=== PATIENT | male | born 1955 | race Caucasian/White ===

== ENCOUNTER 2016-05-27 13:31 | Inpatient (IN) | payer OTHER ==
[2016-05-27] MEDS ORDERED: NS 0.9% 1000 ML* 1,000 ML IV ONE (14:03)
[2016-05-27 14:13] LABS: Hematocrit 44 % (42-52); Mean Corpuscular HGB Conc 32 g/dl (31-36); Mean Corpuscular Hemoglobin 32 pg (27-31); Mean Corpuscular Volume 99 fL (80-94); Red Blood Count 4.43 10^6/ul (4.0-5.4); Red Cell Distribution Width 13 % (10.5-15)
[2016-05-27 14:16] LABS: Add Diff/Slide Review? Slide Review Added; Comments Flag Yes
[2016-05-27 14:27] LABS: Albumin 5.1 g/dL (3.2-5.2); BUN/Creatinine Ratio 10.2 (8-20); C Reactive Protein 19.4 mg/L (< 5.00); Calcium 10.2 mg/dL (8.6-10.3); EGFR African American 21.5 (>60); EGFR Non-African American 16.7 (>60); Globulin 3.1 g/dL (2-4); Magnesium 2.3 mg/dL (1.9-2.7); Potassium 5.1 mmol/L (3.5-5.0); Total Bilirubin 0.5 mg/dL (0.2-1.0); Total Protein 8.2 g/dL (6.4-8.9)
[2016-05-27] MEDS ORDERED: Ondansetron INJ* 2 MG/ML VIAL IV ONE (14:27)
[2016-05-27] MEDS ORDERED: Morphine INJ* 4 MG/ML 1 ML CARPUJECT IV ONE (14:27)
[2016-05-27 14:31] LABS: Troponin I 0.13 ng/mL (<0.04)
[2016-05-27] MEDS ORDERED: Aspirin Low Dose CHEW TAB* 81 MG ONE (14:35)
[2016-05-27] MEDS ORDERED: Aspirin Low Dose CHEW TAB* 81 MG PO ONE (14:37)
--- NOTE | 2016-05-27 14:39 | RAD ---
Indication: Abdominal pain. Flat and decubitus views of the abdomen demonstrates no free air. Stool is noted in the right colon. IMPRESSION: Stool is noted in the right colon. No definite obstruction or free air is noted.
[2016-05-27 14:51] LABS: Immature Granulocytes 3 % (0-9); Mean Platelet Volume 8 um3 (7.4-10.4); Metamyelocytes % 1 % (0-2); Neutrophil % 85 % (38-83); RBC Morphology Normal (Normal); White Blood Count 21.8 10^3/ul (3.5-10.8)
--- NOTE | 2016-05-27 15:01 | RAD ---
HISTORY: Abdominal pain COMPARISONS: July 20, 2014 VIEWS: 2: Frontal dual-energy and lateral views of the chest. FINDINGS: CARDIOMEDIASTINAL SILHOUETTE: The cardiomediastinal silhouette is normal. JOSEP: The josep are normal. PLEURA: The costophrenic angles are sharp. No pleural abnormalities are noted. LUNG PARENCHYMA: The lungs are clear. ABDOMEN: The upper abdomen is clear. There is no subphrenic gas. BONES AND SOFT TISSUES: No bone or soft tissue abnormalities are noted. OTHER: None. IMPRESSION: NO ACTIVE CARDIOPULMONARY DISEASE.
[2016-05-27] MEDS ORDERED: Dextrose 50% Syringe 50 ML* 25 GM/50 ML SYRINGE IV PUSH PRN (15:21)
--- NOTE | 2016-05-27 16:52 | RAD ---
CLINICAL HISTORY: Abdominal pain, acute renal failure COMPARISON: July 20, 2014 TECHNIQUE: Multiple contiguous axial CT scans were obtained of the abdomen and pelvis, without intravenous contrast enhancement. Coronal and sagittal multiplanar reformations are submitted for review. Oral contrast was administered. FINDINGS: The study is limited by the lack of intravenous contrast. This limits evaluation of the solid organs and vasculature. LUNG BASES: The lung bases are clear. LIVER: The liver is diffusely low in attenuation compared to the spleen. There are no focal hepatic parenchymal masses. Liver is enlarged measuring 20 cm in long axis. BILE DUCTS: There is no intrahepatic or extrahepatic biliary dilatation. GALLBLADDER: The gallbladder is normal, without pericholecystic inflammatory change. PANCREAS: The pancreas is normal, without mass or ductal dilatation. SPLEEN: Normal in size and appearance. UPPER GI TRACT: Evaluation of the gastrointestinal tract is limited by incomplete gastric distention. The upper GI tract is unremarkable. SMALL BOWEL AND MESENTERY: The small bowel is normal in contour, course, and caliber. There is no obstruction or dilatation. COLON: There are multiple diverticula of the sigmoid colon. There is no pericolonic inflammatory change. ADRENALS: Normal bilaterally. KIDNEYS: The kidneys are normal in shape, size, contour, and axis. There is no hydronephrosis or nephrolithiasis. BLADDER: The bladder is collapsed around a Cortes catheter. PELVIC ORGANS: The prostate gland is normal. The seminal vesicles are symmetric. AORTA: There is calcific atherosclerotic disease of the abdominal aorta and its branches, without aneurysmal dilatation IVC: Unremarkable LYMPH NODES: There is no lymphadenopathy by size criteria. ABDOMINAL WALL: There is a fat-containing umbilical hernia. There is a fat-containing left inguinal hernia. BONES AND SOFT TISSUES: Degenerative changes are noted of the spine. There are bilateral pars defects at L5. OTHER: None IMPRESSION: 1. HEPATOMEGALY WITH FATTY INFILTRATION OF THE LIVER. 2. DIVERTICULOSIS. 3. FAT-CONTAINING UMBILICAL AND LEFT INGUINAL HERNIAS.
[2016-05-27] MEDS ORDERED: Magnesium CITRATE* 300 ML BTL PO ONE (17:00)
--- NOTE | 2016-05-27 17:22 | ED ---
Crystal Mckeon Anna, scribed for Edy Young MD on 05/27/16 at 1402 . HPI Chest Pain - HPI Summary HPI Summary: Patient is a 60 y/o male coming to [facility] presenting with gradual onset of constant CP that began 2 weeks ago. He describes the severity of the pain as 10/ 10. He additionally reports abd tightness and SOB. His Hx is significant for pancreatitis and DM. - History of Current Complaint Chief Complaint: EDChestPainROMI Time Seen by Provider: 05/27/16 13:57 Hx Obtained From: Patient Pain Intensity: 10 Pain Scale Used: 0-10 Numeric - Allergy/Home Medications Allergies/Adverse Reactions: Allergies Allergy/AdvReac Type Severity Reaction Status Date / Time No Known Allergies Allergy Verified 07/20/14 18:17 Home Medications: Home Medications Amitriptyline TAB* [Elavil TAB*] 75 mg PO BEDTIME 05/27/16 [History Confirmed ] Aspirin EC Low Dose* [Ecotrin EC Low Dose*] 81 mg PO DAILY 05/27/16 [History Confirmed 05/27/16] Atorvastatin* [Lipitor*] 20 mg PO DAILY 05/27/16 [History Confirmed 05/27/16] Cetirizine* [ZyrTEC*] 10 mg PO DAILY 05/27/16 [History Confirmed 05/27/16] Vlryhrcymqqkm-Xwkkwekunlh-Ihnh [Odefsey 200-25-25 mg] 1 tab PO DAILY 05/27/16 [ History Confirmed 05/27/16] Insulin GLARGINE(*) [Lantus(*)] 48 units SUBCUT BID 05/27/16 [History Confirmed 05/27/16] Insulin REGULAR(*) 0 - 100 units SUBCUT TID 05/27/16 [History Confirmed 05/27/16 ] Lisinopril [Lisinopril 40 MG-] 40 mg PO DAILY 05/27/16 [History Confirmed ] Meloxicam(NF) [Mobic(NF)] 7.5 mg PO BID 05/27/16 [History Confirmed 05/27/16] Omeprazole CAP* [Prilosec CAP* 20 MG] 20 mg PO DAILY 05/27/16 [History Confirmed 05/27/16] Polyethylene Glycol 3350* [Miralax*] 17 gm PO DAILY 05/27/16 [History Confirmed 05/27/16] Psyllium AROLDO* [Metamucil AROLDO*] 1 pkt PO DAILY 05/27/16 [History Confirmed ] Pyridoxine TAB* [Vitamin B6 TAB*] 100 mg PO BID 05/27/16 [History Confirmed 11/03] metFORMIN* [Glucophage*] 1,000 mg PO BID 05/27/16 [History Confirmed 05/27/16] PMH/Surg Hx/FS Hx/Imm Hx Previously Healthy: No - Pancreatitis in 2014 Endocrine/Hematology History: Reports: Hx Diabetes Cardiovascular History: Reports: Hx Hypertension, Other Cardiovascular Problems/ Disorders - dyslipidemia GI History: Reports: Hx Gastroesophageal Reflux Disease Infectious Disease History: Yes Infectious Disease History: Denies: Traveled Outside the [place] in Last 30 Days - Family History Known Family History: Negative: Cardiac Disease, Diabetes - Social History Occupation: Unemployed - Incarcerated Alcohol Use: None Substance Use Type: Reports: None Smoking Status (MU): Heavy Every Day Tobacco Smoker Review of Systems Positive: Chest Pain Positive: Shortness Of Breath Positive: Abdominal Pain All Other Systems Reviewed And Are Negative: Yes Physical Exam - Summary Physical Exam Summary: VITAL SIGNS: Reviewed. GENERAL: Patient is a well developed and nourished male with disconfort c/o CP, abdominal pain and SOB. HEAD AND FACE: Normocephalic and atraumatic. EYES: PERRLA, EOMI x 2, No injected conjunctiva. EARS: Hearing grossly intact. Ear canals and tympanic membranes are WNL. MOUTH: Oropharynx within normal limits. NECK: Supple, trachea is midline, no adenopathy, no JVD. CHEST: Symmetric, no tenderness at palpation LUNGS: Clear to auscultation bilaterally. No wheezing or crackles. CVS: RRR,, S1 and S2 present, no murmurs or gallops appreciated. ABDOMEN: Rigid, Positive abdominal distention, decrease BS, EXTREMITIES: FROM in all major joints, no edema, no cyanosis or clubbing. NEURO: Alert and oriented x 3. No acute neurological deficits. Speech is normal. SKIN: Dry and warm Triage Information Reviewed: Yes Vital Signs On Initial Exam: Initial Vitals Temp Pulse Resp BP Pulse Ox 85 F 109 20 127/65 100 05/27/16 13:44 05/27/16 13:44 05/27/16 13:44 05/27/16 13:44 05/27/16 13:44 Vital Signs Reviewed: Yes Diagnostics - Vital Signs Vital Signs Temp Pulse Resp BP Pulse Ox 05/27/16 13:44 85 F 109 20 127/65 100 - Laboratory Lab Results: Lab Results 05/27/16 Range/Units 13:35 WBC Pending RBC 4.43 (4.0-5.4) 10^6/ul Hgb 14.0 (14.0-18.0) g/dl Hct 44 (42-52) % MCV 99 H (80-94) fL MCH 32 H (27-31) pg MCHC 32 (31-36) g/dl RDW 13 (10.5-15) % Plt Count Pending MPV Pending Neut % (Auto) Pending Lymph % (Auto) Pending Jones % (Auto) Pending Eos % (Auto) Pending Baso % (Auto) Pending Absolute Neuts (auto) Pending Absolute Lymphs (auto) Pending Absolute Monos (auto) Pending Absolute Eos (auto) Pending Absolute Basos (auto) Pending Absolute Nucleated RBC Pending Nucleated RBC % Pending Result Diagrams: 05/27/16 13:35 05/27/16 13:35 Lab Statement: Any lab studies that have been ordered have been reviewed, and results considered in the medical decision making process. - Radiology Abd XR Xray Interpretation: Positive (See Comments) Radiology Interpretation Completed By: Radiologist - IMPRESSION: Stool is noted in the right colon. No definite obstruction or free air is noted. CXR Xray Interpretation: No Acute Changes Radiology Interpretation Completed By: Radiologist - CT CT abd/pel CT Interpretation: Positive (See Comments) CT Interpretation Completed By: Radiologist - IMPRESSION: 1. HEPATOMEGALY WITH FATTY INFILTRATION OF THE LIVER. 2. DIVERTICULOSIS. 3. FAT-CONTAINING UMBILICAL AND LEFT INGUINAL HERNIAS. - EKG 1342 Cardiac Rate: Tachycardia - 104 bpm EKG Rhythm: Sinus Tachycardia ST Segment: Normal Ectopy: None EKG Interpretation: no ST elevation 1431 Cardiac Rate: Tachycardia - 104 bpm EKG Rhythm: Sinus Tachycardia ST Segment: Normal Ectopy: None EKG Interpretation: no ST elevation; no change from initial EKG at 1342. Chest Pain Course/Dx - Course Assessment/Plan: Patient is a 60 y/o male coming to [facility] presenting with gradual onset of constant CP that began 2 weeks ago. He describes the severity of the pain as 10/10. He additionally reports abd tightness and SOB. Initially the patient was given IV fluids and morphine for the pain and aspirin since she has an increased troponin. The abdomen is distended and diffuse tenderness therefore I immediately order an EKG, blood work and abdominal and chest x rays to r/o STEMI, viscus perforation. Blood work shows an increase in WBCs 21.8, K+ 5.1 possible secondary to dehydration, increased BUN and creatinine with an acute renal failure, Glucose is 335, creatinine kinase of 781 consistent with rhabdomyolysis and increase troponin. He was also given IV fluid and I consulted Dr. Allen from cardiology who came and saw the patient. He reported that it is not an STEMI. I discussed the case with Dr. Preciado and he will consult after CT of the abdomen. EKG: NSR w/o IVY x 2. CXR impression ; No acute pathology. Abdominal X ray impression: Stool in the right colon. NO definite obstruction is noted. Abdominal and pelvic Ct impression: Hepatomegaly w/ fatty infiltration. Diverticulosis, fat containing umbilical and left inguinal hernias. After morphine patient is more comfortable and hemodynamically stable. I discuss my physical exam, findings and test results with Dr. Kemp from the hospitalist services and she agrees to admit patient to his services. Patient is hemodynamically stable alert and oriented x 3. - Chest Pain Differential Diagnosis/HQI/PQRI: Acute IA, ACS, Angina, CHF, Chest Wall, GI Disease, Lower Respiratory Infection, Pulmonary Edema - Diagnoses Provider Diagnoses: Chest pain r/o ACS, Troponin level elevated, Abdominal pain, Acute renal failure, Leukocytosis, Rhabdomyolysis - Provider Notifications Discussed Care Of Patient With: Dr. Allen (learning technologies specialist) at 1437. He came and saw the patient. He believes it is not a cardio isssue at this time. Dr. Preciado (surgeon) at 1449. He recommends we complete the CT and call back with the results. Dr. Kemp (hospitalist) at 1629. Accepts the patient for admission. Discharge - Discharge Plan Condition: Stable Disposition: ADMITTED TO [facility] The documentation as recorded by the Crystal spence Anna accurately reflects the service I personally performed and the decisions made by me, Edy Young MD.
[2016-05-27] MEDS: NS 0.9% 1000 ML* 1,000 ML IV SCH (17:27)
[2016-05-27] MEDS: cefTRIAXone VIAL(*) 1,000 MG in NS 0.9% 50 ML* 50 ML IVPB SCH (17:28)
[2016-05-27] MEDS: metroNIDAZOLE IV 500 MG/100ML* 500 MG/100 ML BAG IVPB SCH (17:51)
[2016-05-27 17:57] LABS: Urine Bacteria Absent (Absent); Urine Bilirubin Negative (Negative); Urine Glucose 3+(>=500 mg/dL) (Negative); Urine Nitrite Negative (Negative)
[2016-05-27] MEDS: Insulin GLARGINE(*) 1 UNITS UNIT SUBCUT SCH (18:01)
[2016-05-27] MEDS: Pantoprazole IV* 40 MG IV SCH (18:02)
--- NOTE | 2016-05-27 18:22 | HP ---
HISTORY AND PHYSICAL: DATE OF ADMISSION: 05/27/16 PRIMARY CARE PHYSICIAN: A physician from [facility] in [place]. CHIEF COMPLAINT: Generalized weakness, feeling faint, and abdominal pain. HISTORY OF PRESENT ILLNESS: Dakotah Bowen is a 60-year-old male with history of diabetes type 2, insulin dependent; HIV positive, currently treated; hepatitis C antibody positive, but negative viral loads, who was seen initially at the medical office at [facility] for "nearly passing out." The patient complained of problems with urination. 300 mL of urine was obtained after checking post-void at [place]. Subsequently, the patient was sent to the emergency department for evaluation. Here, he complained of diffuse pain. I am evaluating the patient after 4 mg of morphine that he received in the ED. Once again, he complains of increasing abdominal distention , diffuse abdominal pain. He has had no problems with p.o. intake. He stated he has not had bowel movement for "days." He has not had flatulence for also several days. The patient also has multiple other complaints, and he complains also of cough, but no shortness of breath. The cough has been nonproductive and going on for several days. He also complains of chest pain, but further more he explains that it is most likely due to the abdominal pain, is referred. He has chronic bilateral lower leg edema. The patient at this point appears to have small bowel obstruction. His lactic acid is elevated as well as troponin. He is going to be placed in the intensive care unit for further management. PAST MEDICAL HISTORY: 1. Hepatitis C antibody positive with viral load negative. 2. HIV positive. 3. Diabetes, type 2, on insulin. 4. Gastroesophageal reflux disease. 5. History of degenerative disk disease with chronic lower back pain. The patient is cane and wheelchair dependent. 6. History of smoking. MEDICATIONS: 1. Lantus insulin 48 units b.i.d. 2. Regular insulin sliding scale with each meal. 3. Aspirin 81 mg daily. 4. Lipitor 20 mg daily. 5. Metformin 1000 mg b.i.d. 6. Lisinopril 40 mg daily. 7. Elavil 75 mg q.h.s. 8. Prilosec 20 mg daily. 9. Odefsey 1 tablet daily. 10. Vitamin B6 100 mg b.i.d. 11. Zyrtec 10 mg daily. 12. Metamucil 1 tablespoon daily. 13. MiraLAX 17 g daily. 14. Mobic 7.5 mg b.i.d. ALLERGIES: No known drug allergies. FAMILY HISTORY: Positive for mother who secondary to unknown chest tumor. Father sick secondary to "diabetic coma." SOCIAL HISTORY: The patient smokes 1 pack per day. He denies any alcohol or drug use. He is currently a prisoner at [facility] and he has been at [place] [facility] for 8 months now. His legal guardian due to his imprisonment is [facility]. REVIEW OF SYSTEMS: Please see history of present illness. The patient states that he is basically wheelchair bound due to his chronic lower back pain. He states that he uses Mobic for the back pain only. He denies any use of other nonsteroidal antiinflammatory medications. He complains of urinary urgency and frequency. Once again, he had 300 mL of urine residual at [place]. Complains of no bowel movement and no flatulence for several days now. Increasing abdominal girth was noted, but no nausea or vomiting and his appetite was good. The patient complains of chest pain but he indicates epigastric pain when evaluated. He denies shortness of breath, but complains of nonproductive cough for several days. He denies fevers. All the remaining 14 systems were reviewed with the patient, were otherwise negative. PHYSICAL EXAMINATION GENERAL: The patient is a very pleasant 60-year-old male whose BMI is 34.2 kg/ sq. m. The patient is in no acute distress. Awake, alert, and oriented x3. VITAL SIGNS: Blood pressure 127/65, heart rate of 105 and regular, respiratory rate 20, oxygen saturation 92 % on room air. Please note that when the patient is falling asleep, his oxygen saturation drops to the 80s on room air. Temperature of 97.8. HEENT: Head: Atraumatic, normocephalic. Eyes: Pupils equal and reactive to light and accommodation. Oropharynx clear. Mucosa dry. NECK: Supple. No JVD. No bruit bilaterally. RESPIRATORY: Clear to auscultation bilaterally. CARDIOVASCULAR: Regular rate and rhythm. No murmur. ABDOMEN: Very protuberant and distended. Firm to palpation, diffusely tender. Bowel sounds are hypoactive. There is no rebound and no guarding. EXTREMITIES: There is trace bilateral pedal edema. +2 pulses bilaterally. No clubbing or cyanosis. NEURO: Speech clear. Cranial nerves II through XII are grossly intact. Muscle strength is 5/5 bilaterally. SKIN: On evaluation of the skin, no ecchymotic areas or rashes noted. DIAGNOSTIC STUDIES/LAB DATA: Showed white blood cell count of 21.8, hemoglobin of 14.0, hematocrit of 44, MCV of 99, and platelets of 376. The patient has 2% bands on the differential and 85% of neutrophils. Sodium was 138 , potassium of 5.1, chloride 98, carbon dioxide 35, BUN 38, creatinine of 3.72. Anion gap of 15. Glucose of 335. Lactic acid of 4.1. Liver function tests showed CPK of 781. Troponin of 0.1. C-reactive protein of 19. Brain natriuretic peptide was 40. Lipase of 113. AST, ALT, and alkaline phosphatase were unremarkable. Portable chest x-ray, impression: "No active cardiopulmonary disease." Abdominal x-ray, impression: "Stool noted in the right colon. No definite obstruction or free air is noted." The patient's EKG showed sinus tachycardia with heart rate of 104 beats per minute with no new ischemic changes noted. 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 ASSESSMENT AND PLAN: A 60-year-old male with HIV positive as well as diabetes, type 2, and obesity, and current smoker, who presents meeting systemic inflammatory response syndrome criteria with symptoms of small bowel obstruction. At this point, we are still awaiting the CT of abdomen as ordered by the ED. However, the patient's symptoms most likely related to small bowel obstruction. The patient is going to be placed on n.p.o., intravenous hydration, and Protonix IV for GI prophylaxis while n.p.o. Further management depends on the patient's CAT scan results. The patient's lactic acidosis is most likely due to combination of dehydration as well as use of metformin. We will check lactic acid in another 3 hours after intravenous fluid hydration. The patient's troponin is mildly elevated in the face of acute renal failure. We will continue trending troponins and place the patient in the ICU. I will also obtain transthoracic echocardiogram. For the time being, the patient's symptoms are not suggestive of angina. For the patient's diabetes, which is uncontrolled, the patient is going to be on insulin sliding scale and insulin Lantus twice a day. Intravenous fluids are going to be administered. For history of urinary frequency and urgency and questionable urinary retention , we will place Cortes for hemodynamic monitoring in the ED and obtain urinalysis. The patient meets systemic inflammatory response syndrome criteria at admission , with source most likely being intraabdominal or maybe urinary tract infection. At this point, the patient is going to be placed empirically on ceftriaxone and Flagyl. Code status is full. For DVT prophylaxis, the patient is going to be placed on heparin subcutaneously. In regards to the patient's HIV medications, I asked the guards from [place] to bring his HIV medications for tomorrow. TIME SPENT: Approximately 72 minutes was spent on admission of this patient, more than half the time was spent [id number] with the patient during the interview and physical exam. CC: [facility] * [id number]/CPS #: [id number] MTDD
[2016-05-27] MEDS: Insulin LISPRO* 1 UNITS UNIT SUBCUT SCH (19:09)
[2016-05-27] MEDS ORDERED: Nicotine Inhaler* 10 MG AMP INH PRN (19:23)
[2016-05-27] MEDS ORDERED: Mouth Piece, Nicotine* 1 EACH CARTRIDGE INH ONE (19:23)
[2016-05-27] MEDS ORDERED: Mouth Piece, Nicotine* 1 EACH CARTRIDGE ONE (19:54)
[2016-05-27] MEDS: Morphine INJ* 2 MG/ML 1 ML CARPUJECT IV PRN (20:00)
[2016-05-27] MEDS: LORazepam INJ* 2 MG/ML 1 ML VIAL IV PUSH PRN (20:00)
[2016-05-27] MEDS ORDERED: NS 0.9% 500 ML* 500 ML IV ONE (22:00)
[2016-05-27] MEDS ORDERED: Sodium Phosphate ADULT ENEMA* 118 ml bottle PR ONE (22:10)
[2016-05-27] MEDS: Heparin VIAL(*) 5000 UNITS/ML VIAL (FIVE THOUSAND) SUBCUT SCH (22:23)
[2016-05-27] MEDS ORDERED: LORazepam INJ* 2 MG/ML 1 ML VIAL ONE (22:36)
[2016-05-28] MEDS: Morphine INJ* 2 MG/ML 1 ML CARPUJECT IV PRN ×5 (00:37→20:14)
[2016-05-28] MEDS: Insulin LISPRO* 1 UNITS UNIT SUBCUT SCH ×4 (00:49→17:46)
[2016-05-28] MEDS: metroNIDAZOLE IV 500 MG/100ML* 500 MG/100 ML BAG IVPB SCH ×3 (02:06→17:34)
[2016-05-28] MEDS ORDERED: Sodium Phosphate ADULT ENEMA* 118 ml bottle PR ONE (03:46)
[2016-05-28] MEDS: Insulin GLARGINE(*) 1 UNITS UNIT SUBCUT SCH ×2 (04:18→15:36)
[2016-05-28] MEDS: Polyethylene Glycol 3350* 17 GM PACKET PO SCH ×2 (04:18→09:05)
[2016-05-28] MEDS: Heparin VIAL(*) 5000 UNITS/ML VIAL (FIVE THOUSAND) SUBCUT SCH ×2 (05:29→15:36)
[2016-05-28 06:08] LABS: Hematocrit 36 % (42-52); Hemoglobin 12.1 g/dl (14.0-18.0); Mean Corpuscular HGB Conc 33 g/dl (31-36); Mean Corpuscular Hemoglobin 32 pg (27-31); Mean Corpuscular Volume 97 fL (80-94); Mean Platelet Volume 7 um3 (7.4-10.4); Red Blood Count 3.73 10^6/ul (4.0-5.4); Red Cell Distribution Width 13 % (10.5-15); White Blood Count 14.3 10^3/ul (3.5-10.8)
[2016-05-28 06:09] LABS: Comments Flag Yes
[2016-05-28 06:28] LABS: BUN/Creatinine Ratio 23.4 (8-20); Calcium 8.7 mg/dL (8.6-10.3); EGFR African American 47.3 (>60); EGFR Non-African American 36.8 (>60); Globulin 2.7 g/dL (2-4); Potassium 3.7 mmol/L (3.5-5.0); Total Bilirubin 0.4 mg/dL (0.2-1.0); Total Protein 6.7 g/dL (6.4-8.9)
[2016-05-28] MEDS: Pantoprazole IV* 40 MG IV SCH (08:50)
[2016-05-28] MEDS: LORazepam INJ* 2 MG/ML 1 ML VIAL IV PUSH PRN ×2 (08:50→20:13)
[2016-05-28] MEDS ORDERED: Polyethylene Glycol 3350* 17 GM PACKET PO SCH (09:00)
[2016-05-28] MEDS: Psyllium PAK PO SCH (12:44)
--- NOTE | 2016-05-28 16:24 | ECHO ---
Patient: IBRAHIMA GONZALEZ [id number] [facility] Rec#: [id number] : 1955 Date: 05/28/2016 Age: 60y Height: 180 cm / 70.9 in Weight: 111 kg / 244.6 lbs Sex: M BSA: 2.29 Room#: 402 Admit Date#: 05/27/2016 Type: Inpatient Referring: Daniela Kemp MD Reading: Ya Ashley MD Particle Board Supervisor: Jesus Diego RDCS Transthoracic Echocardiogram Indication: ELEVATED,TROPONIN,HIV BP: 136/86 HR: 97 Rhythm: NSR Findings History: HEPC,HIV,DM,GERD,fomer smoker Technical Comments: The study quality is fair. Left Ventricle: The left ventricular chamber size is normal. There is normal left ventricular systolic function. The estimated ejection fraction is 55-60%. Abnormal left ventricular diastolic filling is observed, consistent with impaired relaxation. Left Atrium: The left atrial chamber size is normal. Right Ventricle: The right ventricular cavity size is normal. The right ventricular global systolic function is normal. Right Atrium: The right atrial cavity size is normal. Aortic Valve: The aortic valve is trileaflet. There is no evidence of aortic regurgitation. There is no evidence of aortic stenosis. Mitral Valve: The mitral valve leaflets appear normal. There is a trace of mitral regurgitation. There is no evidence of mitral stenosis. Tricuspid Valve: There is trace tricuspid regurgitation. Pulmonic Valve: The pulmonic valve appears normal. There is no evidence of pulmonic regurgitation. There is no pulmonic stenosis. Pericardium: There is no pericardial effusion. Aorta: There is no dilatation of the ascending aorta. There is no dilatation of the aortic arch. There is no dilation of the aortic root. Pulmonary Artery: The main pulmonary artery is not well visualized. Venous: The venous system is not well visualized. Summary: There was not any prior study for comparison. Conclusions There is normal left ventricular systolic function. The estimated ejection fraction is 55-60%. Abnormal left ventricular diastolic filling is observed, consistent with impaired relaxation. There is a trace of mitral regurgitation. Measurements Name Value Normal Range RVIDd (AP) 2D 2.6 cm (0.9 - 2.6) RVDdMajor (2D) 2.7 cm (2.2 - 4.4) RAd ISD 4CH 4.3 cm (3.4 - 4.9) RA (A4C)W 2.5 cm (2.9 - 4.6) IVSd (2D) 0.7 cm (0.6 - 1) LVPWd (2D) 0.8 cm (0.6 - 1) LVIDd (2D) 5.6 cm (3.6 - 5.4) LVIDs (2D) 3.5 cm - LV FS (2D) 38 % (25 - 45) Aortic Annulus 2.4 cm (1.4 - 2.6) Ao root diameter (2D) 2.4 cm (2.1 - 3.5) Ascending Ao 3.3 cm (2.1 - 3.4) Aortic arch 2.3 cm (1.8 - 3.4) LA dimension (AP) 2D 4 cm (2.3 - 3.8) LAd ISD 4CH 4.4 cm (2.9 - 5.3) LA ISD 4CH W 3.2 cm (2.5 - 4.5) Name Value Normal Range LA ESV SP 4CH (A/L) 38 ml - LA ESV SP 2CH (A/L) 58 ml - LA ESV BP (A/L) 52 ml - LA ESV BP (A/L) index 22.85 ml/m2 - LA ESV SP 4CH (MOD) 34 ml - LA ESV SP 2CH (MOD) 63 ml - Name Value Normal Range MV E-wave Vmax 0.73 m/sec - MV deceleration time 119 msec - MV A-wave Vmax 0.7 m/sec - MV E:A ratio 1.01 ratio - LV septal e' Vmax 0.07 m/sec - LV lateral e' Vmax 0.07 m/sec - LV E:e' septal ratio 10.4 ratio - LV E:e' lateral ratio 10.4 ratio - Name Value Normal Range LVOT diameter 2 cm - LVOT Vmax 1 m/sec - Name Value Normal Range PV Vmax 1.02 m/sec - PV peak gradient 4.15 mmHg -
--- NOTE | 2016-05-28 16:38 | PN ---
Subjective Date of Service: 05/28/16 Interval History: Seen and examined Has many complaints "pain all over" does endorse pain in lower back as well as leg weakness. Notes he has had "spurting" of stool which he cannot control. Has episodes of urinary incontinence. Question of urinary retention based on admission H&P. Feels very distended. No Flatus. He is hungry. No nausea nor vomiting Objective Active Medications: Dextrose (D50w Syringe 50 Ml*) 12.5 gm IV PUSH .FOR FS < 60 - SS PRN PRN Reason: FS < 60 Heparin Sodium (Porcine) (Heparin Vial(*)) 5,000 units SUBCUT Q8HR [facility] Last Admin: 05/28/16 15:36 Dose: 5,000 units Sodium Chloride (Ns 0.9% 1000 Ml*) 1,000 mls @ 125 mls/hr IV PER RATE [facility] Last Admin: 05/27/16 17:27 Dose: 125 mls/hr Ceftriaxone Sodium 1,000 mg/ (Sodium Chloride) 50 mls @ 200 mls/hr IVPB Q24H [facility] Last Admin: 05/27/16 17:28 Dose: 200 mls/hr Metronidazole/Sodium Chloride (Flagyl 500 Mg Ivpb*) 500 mg in 100 mls @ 100 mls /hr IVPB Q8H [facility] Last Admin: 05/28/16 08:51 Dose: 100 mls/hr Insulin Glargine (Lantus(*)) 30 units SUBCUT Q12H [facility] Last Admin: 05/28/16 15:36 Dose: 30 unit Insulin Human Lispro (Humalog*) 0 units SUBCUT Q6HR [facility] PRN Reason: Protocol Last Admin: 05/28/16 12:19 Dose: Not Given Lorazepam (Ativan Inj*) 1 mg IV PUSH Q6H PRN PRN Reason: ANXIETY Last Admin: 05/28/16 08:50 Dose: 1 mg Magnesium Citrate (Citrate Of Magnesia*) 150 ml PO ONCE ONE Stop: 05/28/16 17:01 Morphine Sulfate (Morphine Inj (Syringe)*) 1 mg IV Q4H PRN PRN Reason: PAIN Last Admin: 05/28/16 15:37 Dose: 1 mg Nicotine (Nicotine Inhaler*) 10 mg INH Q2H PRN PRN Reason: CRAVING Last Admin: 05/27/16 19:59 Dose: 10 mg Pantoprazole Sodium (Protonix Iv*) 40 mg IV DAILY [facility] Last Admin: 05/28/16 08:50 Dose: 40 mg Polyethylene Glycol/Electrolytes (Miralax*) 17 gm PO DAILY [facility] Last Admin: 05/28/16 08:50 Dose: 17 gm Polyethylene Glycol/Electrolytes (Miralax*) 17 gm PO 0800,2100 [facility] Last Admin: 05/28/16 09:05 Dose: 17 gm Psyllium Hydrophilic Mucilloid (Metamucil Bryan*) 1 pkt PO DAILY [facility] Last Admin: 05/28/16 12:44 Dose: 1 pkt Senna (Senokot Tab*) 2 tab PO BEDTIME PRN PRN Reason: CONSTIPATION Vital Signs 05/27/16 05/27/16 05/27/16 17:00 17:10 17:19 Temperature 98.1 F 97.3 F 208.8 F Pulse Rate 107 110 47 Respiratory 12 13 20 Rate Blood Pressure 159/89 159/89 (mmHg) O2 Sat by Pulse 88 93 96 Oximetry 05/27/16 05/27/16 05/27/16 17:30 17:44 17:45 Temperature 97.8 F 98.2 F Pulse Rate 111 113 Respiratory 15 22 25 Rate Blood Pressure 107/95 130/76 (mmHg) O2 Sat by Pulse 90 89 Oximetry 05/27/16 05/27/16 05/27/16 18:00 18:05 18:14 Temperature 98.4 F 98.5 F 98.5 F Pulse Rate 109 111 Respiratory 23 17 Rate Blood Pressure 149/83 (mmHg) O2 Sat by Pulse 91 89 Oximetry 05/27/16 05/27/16 05/27/16 19:00 20:00 21:00 Temperature 98.9 F 97.5 F 98.9 F Pulse Rate Respiratory 23 18 27 Rate Blood Pressure 137/71 170/96 (mmHg) O2 Sat by Pulse 91 92 96 Oximetry 05/27/16 05/27/16 05/27/16 21:02 22:00 22:41 Temperature 98.9 F 98.4 F Pulse Rate Respiratory 20 25 16 Rate Blood Pressure 111/77 150/92 (mmHg) O2 Sat by Pulse 94 98 Oximetry 05/27/16 05/28/16 05/28/16 23:06 00:37 04:00 Temperature 97.2 F Pulse Rate 101 Respiratory 18 19 16 Rate Blood Pressure 163/90 (mmHg) O2 Sat by Pulse 96 Oximetry 05/28/16 05/28/16 05/28/16 04:24 04:55 05:28 Temperature 97.5 F Pulse Rate 94 Respiratory 19 18 18 Rate Blood Pressure 136/86 (mmHg) O2 Sat by Pulse 99 Oximetry 05/28/16 05/28/16 05/28/16 06:28 07:24 08:00 Temperature 98.1 F Pulse Rate 101 Respiratory 18 20 Rate Blood Pressure 141/85 (mmHg) O2 Sat by Pulse 92 Oximetry 05/28/16 05/28/16 05/28/16 08:50 09:50 10:51 Temperature Pulse Rate Respiratory 20 20 20 Rate Blood Pressure (mmHg) O2 Sat by Pulse Oximetry 05/28/16 05/28/16 11:51 15:37 Temperature Pulse Rate Respiratory 20 18 Rate Blood Pressure (mmHg) O2 Sat by Pulse Oximetry Oxygen Devices in Use Now: None Appearance: interactive, NAD Eyes: No Scleral Icterus, PERRLA Ears/Nose/Mouth/Throat: - - dry MM Neck: NL Appearance and Movements; NL JVP, Trachea Midline Respiratory: Symmetrical Chest Expansion and Respiratory Effort, Clear to Auscultation Cardiovascular: NL Sounds; No Murmurs; No JVD, RRR Abdominal: - - distened, TTP only in RLQ, no rebound or guarding, decreased bowel sounds Lymphatic: No Cervical Adenopathy Extremities: - - trace LE edema Neurological: Alert and Oriented x 3, - - at best 3/5 LE strength prox and distal, sensation intact, negative straight leg test Result Diagrams: 05/28/16 05:18 05/28/16 05:18 Additional Lab and Data: Lab Results 05/27/16 Range/Units 13:35 WBC Pending RBC 4.43 (4.0-5.4) 10^6/ul Hgb 14.0 (14.0-18.0) g/dl Hct 44 (42-52) % MCV 99 H (80-94) fL MCH 32 H (27-31) pg MCHC 32 (31-36) g/dl RDW 13 (10.5-15) % Plt Count Pending MPV Pending Neut % (Auto) Pending Lymph % (Auto) Pending [place] % (Auto) Pending Eos % (Auto) Pending Baso % (Auto) Pending Absolute Neuts (auto) Pending Absolute Lymphs (auto) Pending Absolute Monos (auto) Pending Absolute Eos (auto) Pending Absolute Basos (auto) Pending Absolute Nucleated RBC Pending Nucleated RBC % Pending Microbiology and Other Data: Microbiology 05/27/16 18:50 Nasal Screen MRSA (PCR)([facility]) - Final Nasal Mrsa Negative Assess/Plan/Problems-Billing Assessment: 60 yo M h/o HIV (unknown VL or CD4), DM2, GERD, chronic back pain p/w abdominal pain and obstipation - Patient Problems (1) Obstipation Comment: Unclear etiology. Reviewed film with Dr. Romano. No e/o fecal impaction , no SOB. Stomach is large maybe suggestion partial gastric outlet obstruction however pt with no nausea/vomiting. In setting of back pain with fecal and urinary incontinence will check MRI spine. In setting of elevated WBC would liek to check with contrast. Will hold until tomorrow and check with contrast if able otherwise MRI without contrast. (2) Diabetes Comment: Basal bolus insulin (3) HIV (human immunodeficiency virus infection) Comment: We do not have his antiretrovirals. Consult for assistance in selecting appropriate replacement. Check VL and CD4 count (4) Elevated troponin Comment: TTE read pending (5) Acute kidney failure Comment: Improving c/w NS (6) DVT prophylaxis Comment: HSQ
[2016-05-28] MEDS: cefTRIAXone VIAL(*) 1,000 MG in NS 0.9% 50 ML* 50 ML IVPB SCH (16:58)
[2016-05-28] MEDS ORDERED: Magnesium CITRATE* 300 ML BTL PO ONE (17:00)
[2016-05-28] MEDS: Senna TAB PO PRN (20:17)
[2016-05-29] MEDS: Heparin VIAL(*) 5000 UNITS/ML VIAL (FIVE THOUSAND) SUBCUT SCH ×4 (00:36→20:52)
[2016-05-29] MEDS: Ondansetron INJ* 2 MG/ML VIAL IV PRN ×3 (00:43→18:26)
[2016-05-29] MEDS: Insulin LISPRO* 1 UNITS UNIT SUBCUT SCH ×4 (02:21→18:20)
[2016-05-29] MEDS: metroNIDAZOLE IV 500 MG/100ML* 500 MG/100 ML BAG IVPB SCH ×3 (02:48→19:30)
[2016-05-29] MEDS: Morphine INJ* 2 MG/ML 1 ML CARPUJECT IV PRN ×5 (04:02→18:28)
[2016-05-29] MEDS: LORazepam INJ* 2 MG/ML 1 ML VIAL IV PUSH PRN ×2 (04:03→19:54)
[2016-05-29] MEDS: Insulin GLARGINE(*) 1 UNITS UNIT SUBCUT SCH ×2 (05:09→21:09)
[2016-05-29 07:13] LABS: Hematocrit 35 % (42-52); Hemoglobin 11.8 g/dl (14.0-18.0); Mean Corpuscular HGB Conc 34 g/dl (31-36); Mean Corpuscular Hemoglobin 32 pg (27-31); Mean Corpuscular Volume 97 fL (80-94); Mean Platelet Volume 7 um3 (7.4-10.4); Red Blood Count 3.64 10^6/ul (4.0-5.4); Red Cell Distribution Width 13 % (10.5-15); White Blood Count 9.2 10^3/ul (3.5-10.8)
[2016-05-29 07:22] LABS: Albumin 3.6 g/dL (3.2-5.2); BUN/Creatinine Ratio 22.9 (8-20); Calcium 8.7 mg/dL (8.6-10.3); Direct Bilirubin 0.1 mg/dL (0.03-0.18); EGFR African American 121.5 (>60); EGFR Non-African American 94.5 (>60); Globulin 2.7 g/dL (2-4); Indirect Bilirubin 0.6 mg/dL (0.3-1.0); Potassium 3.8 mmol/L (3.5-5.0); Total Bilirubin 0.7 mg/dL (0.2-1.0); Total Protein 6.3 g/dL (6.4-8.9)
[2016-05-29] MEDS: Pantoprazole IV* 40 MG IV SCH (09:11)
[2016-05-29] MEDS: Psyllium PAK PO SCH (09:11)
[2016-05-29] MEDS: NS 0.9% 1000 ML* 1,000 ML IV SCH (10:00)
[2016-05-29] MEDS ORDERED: Gadoteridol* (CONTRAST) 279.3 MG/ML 10 ML IV NR (10:41)
--- NOTE | 2016-05-29 12:27 | RAD ---
INDICATION: Low back pain and incontinence COMPARISON: CT abdomen pelvis dated July 20, 2014 at demonstrated advanced degenerative changes of the lumbar spine as well as at L5/S1 pars interarticularis defect. TECHNIQUE: Coronal sexual assault counsellor, sagittal T1, inversion recovery, T2, and axial T1, T2 images were acquired. Due to patient discomfort on the MRI scanner the contrast enhanced images were not acquired. FINDINGS: The spinal cord terminates at the T12/L1 level. There are no intrinsic abnormalities of the visualized cord. The lower thoracic and lumbar vertebrae are normally aligned. There is chronic appearing reduction of height involving the L4 and L5 vertebral bodies. Signal intensity of the vertebral bodies is appropriate. There is noticeable reduction in height in the lower lumbar intervertebral disc level with protrusion of the intervertebral discs seen both anterior and posteriorly. Bright fluid signal is seen at L3/L4 and L5/S1. The adjacent vertebral bodies do not exhibit similar fluid signal. Axial view images: Less otherwise specified below there is no significant central canal stenosis or neural foraminal stenosis. L3-L4: Broad-based disc protrusion combines with facet arthropathy and thickening of the ligamentum flavum to cause very mild central canal stenosis and mild to moderate bilateral neural foraminal stenosis. L4-L5: Broad-based disc protrusion combines with facet arthropathy and thickening of the ligamentum flavum to cause moderate bilateral neural foraminal stenosis. L5-S1: Broad-based disc protrusion combines with facet arthropathy, thickening of ligamentum flavum and proliferation of pericecal fat to cause central canal stenosis and moderate right and severe left neural foraminal stenosis. Best depicted on the axial view images is fatty replacement of the inferior portion of the erector spinae muscle (image 21 of 26). IMPRESSION: 1. There are multilevel degenerative changes of the lower lumbar spine as described above with the most severe findings at L5/S1 where there is high-grade central canal stenosis and advanced left greater than right neural foraminal stenosis. 2. Depicted best on the sagittal view images there is fluid signal at L3/L4 and L5/S1 where the intervertebral discs are otherwise desiccated indicating local effusion. This could be seen in the presence of osteomyelitis although the normal bony signal of the adjacent lumbar endplates does not support this. Please correlate to clinical signs or symptoms of intervertebral disc height is. 3. Fatty degeneration of the inferior portion of the left erector spinae muscle.
--- NOTE | 2016-05-29 17:32 | PN ---
Subjective Date of Service: 05/29/16 Interval History: Seen and examined. Notes pain in abdomen Had 4 bowel movements today. +flatus. Endorses weakness in b/l legs and pain when trying to flex them. Denies paresthesias in extremities No additional bowel incontinence but notes urinary incontinence but no retention. Objective Active Medications: Dextrose (D50w Syringe 50 Ml*) 12.5 gm IV PUSH .FOR FS < 60 - SS PRN PRN Reason: FS < 60 Gadoteridol (Prohance* (Contrast)) 20 ml IV ONCE NR Stop: 05/31/16 10:40 Heparin Sodium (Porcine) (Heparin Vial(*)) 5,000 units SUBCUT Q8HR [facility] Last Admin: 05/29/16 15:40 Dose: 5,000 units Sodium Chloride (Ns 0.9% 1000 Ml*) 1,000 mls @ 125 mls/hr IV PER RATE [facility] Last Admin: 05/29/16 10:00 Dose: 125 mls/hr Ceftriaxone Sodium 1,000 mg/ (Sodium Chloride) 50 mls @ 200 mls/hr IVPB Q24H [facility] Last Admin: 05/28/16 16:58 Dose: 200 mls/hr Metronidazole/Sodium Chloride (Flagyl 500 Mg Ivpb*) 500 mg in 100 mls @ 100 mls /hr IVPB Q8H [facility] Last Admin: 05/29/16 09:11 Dose: 100 mls/hr Insulin Glargine (Lantus(*)) 30 units SUBCUT Q24H [facility] Insulin Glargine (Lantus(*)) 15 units SUBCUT Q24H [facility] Insulin Human Lispro (Humalog*) 0 units SUBCUT Q6HR [facility] PRN Reason: Protocol Last Admin: 05/29/16 12:15 Dose: Not Given Lorazepam (Ativan Inj*) 1 mg IV PUSH Q6H PRN PRN Reason: ANXIETY Last Admin: 05/29/16 04:03 Dose: 1 mg Morphine Sulfate (Morphine Inj (Syringe)*) 2 mg IV Q3H PRN PRN Reason: PAIN Last Admin: 05/29/16 15:33 Dose: 2 mg Nicotine (Nicotine Inhaler*) 10 mg INH Q2H PRN PRN Reason: CRAVING Last Admin: 05/27/16 19:59 Dose: 10 mg Non-Formulary Medication (Lisinopril [Lisinopril 40 Mg-]) 40 mg PO DAILY [facility] Ondansetron HCl (Zofran Inj*) 4 mg IV Q6H PRN PRN Reason: NAUSEA Last Admin: 05/29/16 12:41 Dose: 4 mg Pantoprazole Sodium (Protonix Iv*) 40 mg IV DAILY [facility] Last Admin: 05/29/16 09:11 Dose: 40 mg Psyllium Hydrophilic Mucilloid (Metamucil Bryan*) 1 pkt PO DAILY [facility] Last Admin: 05/29/16 09:11 Dose: 1 pkt Senna (Senokot Tab*) 2 tab PO BEDTIME PRN PRN Reason: CONSTIPATION Last Admin: 05/28/16 20:17 Dose: 2 tab Vital Signs 05/28/16 05/28/16 05/28/16 19:42 20:13 20:14 Temperature 98.6 F Pulse Rate 97 Respiratory 17 20 20 Rate Blood Pressure 174/61 (mmHg) O2 Sat by Pulse 94 Oximetry 05/28/16 05/28/16 05/28/16 20:15 21:13 21:14 Temperature Pulse Rate Respiratory 20 20 20 Rate Blood Pressure (mmHg) O2 Sat by Pulse Oximetry 05/28/16 05/29/16 05/29/16 23:48 04:02 04:03 Temperature 97.5 F Pulse Rate 98 Respiratory 16 20 20 Rate Blood Pressure 154/68 (mmHg) O2 Sat by Pulse 94 Oximetry 05/29/16 05/29/16 05/29/16 05:02 05:03 07:55 Temperature 98.2 F Pulse Rate 106 Respiratory 20 20 16 Rate Blood Pressure 173/83 (mmHg) O2 Sat by Pulse 96 Oximetry 05/29/16 05/29/16 05/29/16 08:00 09:11 10:02 Temperature Pulse Rate 98 Respiratory 18 18 Rate Blood Pressure 164/72 (mmHg) O2 Sat by Pulse Oximetry 05/29/16 05/29/16 05/29/16 10:11 12:40 13:40 Temperature Pulse Rate Respiratory 18 18 20 Rate Blood Pressure (mmHg) O2 Sat by Pulse Oximetry 05/29/16 15:33 Temperature Pulse Rate Respiratory 20 Rate Blood Pressure (mmHg) O2 Sat by Pulse Oximetry Oxygen Devices in Use Now: None Appearance: lying flat on back, NAD Eyes: No Scleral Icterus, PERRLA Ears/Nose/Mouth/Throat: Clear Oropharnyx, Mucous Membranes Moist Neck: NL Appearance and Movements; NL JVP, Trachea Midline Respiratory: Symmetrical Chest Expansion and Respiratory Effort, Clear to Auscultation Cardiovascular: RRR Abdominal: - - softer than yesterday, distended, mild TTP, decreased BS Lymphatic: No Cervical Adenopathy Extremities: No Edema Skin: No Rash or Ulcers Neurological: Alert and Oriented x 3, - - 3/5 LE strength proximal muscle group , moderate rectal tone, sensation intact Result Diagrams: 05/29/16 06:22 05/29/16 06:22 Additional Lab and Data: Lab Results 05/27/16 Range/Units 13:35 WBC Pending RBC 4.43 (4.0-5.4) 10^6/ul Hgb 14.0 (14.0-18.0) g/dl Hct 44 (42-52) % MCV 99 H (80-94) fL MCH 32 H (27-31) pg MCHC 32 (31-36) g/dl RDW 13 (10.5-15) % Plt Count Pending MPV Pending Neut % (Auto) Pending Lymph % (Auto) Pending [place] % (Auto) Pending Eos % (Auto) Pending Baso % (Auto) Pending Absolute Neuts (auto) Pending Absolute Lymphs (auto) Pending Absolute Monos (auto) Pending Absolute Eos (auto) Pending Absolute Basos (auto) Pending Absolute Nucleated RBC Pending Nucleated RBC % Pending Microbiology and Other Data: Microbiology 05/27/16 18:50 Nasal Screen MRSA (PCR)([facility]) - Final Nasal [facility]sa Negative Assess/Plan/Problems-Billing Assessment: 60 yo M h/o HIV (unknown VL or CD4), DM2, GERD, chronic back pain p/w abdominal pain and obstipation found with local effusion around lumbar spine on MRI - Patient Problems (1) Sepsis Comment: Severe, present on admission with spinal source as most likely (2) Obstipation Comment: Unclear etiology. Reviewed film with Dr. Romano. No e/o fecal impaction. Stomach is large maybe suggestion partial gastric outlet obstruction however pt with no nausea/vomiting. High grade central canal stenosis on MRI spine as well as local effusion c/f osteo or abscess. c/w abx Neurosurgery consultation ID consultation (3) Diabetes Comment: hypoglycemic on AM labs decrease 30BId to 30 in AM and 15U in PM Basal bolus insulin (4) HIV (human immunodeficiency virus infection) Comment: Check VL and CD4 count Hold ART in setting of obstipation (5) Elevated troponin Comment: suspect demand (6) Acute kidney failure Comment: Improving c/w NS (7) DVT prophylaxis Comment: HSQ
[2016-05-29] MEDS: cefTRIAXone VIAL(*) 1,000 MG in NS 0.9% 50 ML* 50 ML IVPB SCH (18:25)
[2016-05-29] MEDS: Senna TAB PO PRN (19:54)
[2016-05-30] MEDS: Morphine INJ* 2 MG/ML 1 ML CARPUJECT IV PRN ×5 (00:23→20:58)
[2016-05-30] MEDS: NS 0.9% 1000 ML* 1,000 ML IV SCH ×4 (00:24→23:45)
[2016-05-30] MEDS: Insulin LISPRO* 1 UNITS UNIT SUBCUT SCH ×5 (00:28→21:11)
[2016-05-30] MEDS: metroNIDAZOLE IV 500 MG/100ML* 500 MG/100 ML BAG IVPB SCH ×2 (01:31→09:30)
[2016-05-30] MEDS: Heparin VIAL(*) 5000 UNITS/ML VIAL (FIVE THOUSAND) SUBCUT SCH ×2 (06:10→14:24)
[2016-05-30 06:11] LABS: Hematocrit 37 % (42-52); Mean Corpuscular HGB Conc 33 g/dl (31-36); Mean Corpuscular Hemoglobin 32 pg (27-31); Mean Corpuscular Volume 98 fL (80-94); Mean Platelet Volume 7 um3 (7.4-10.4); Red Blood Count 3.73 10^6/ul (4.0-5.4); Red Cell Distribution Width 12 % (10.5-15); White Blood Count 8.6 10^3/ul (3.5-10.8)
[2016-05-30] MEDS: Insulin GLARGINE(*) 1 UNITS UNIT SUBCUT SCH ×2 (06:11→21:10)
[2016-05-30 06:28] LABS: BUN/Creatinine Ratio 17.7 (8-20); Calcium 8.8 mg/dL (8.6-10.3); EGFR African American 128.7 (>60); Potassium 4.5 mmol/L (3.5-5.0)
[2016-05-30] MEDS: Lisinopril TAB* 10 MG PO SCH (09:32)
[2016-05-30] MEDS: Psyllium PAK PO SCH (09:33)
[2016-05-30] MEDS: Pantoprazole IV* 40 MG IV SCH (09:33)
[2016-05-30] MEDS ORDERED: Gadoteridol* (CONTRAST) 279.3 MG/ML 10 ML IV NR (11:04)
--- NOTE | 2016-05-30 11:45 | RAD ---
Indication: Urinary and fecal incontinence. Back pain. Noncontrast MRI of one day prior with note of fluid signal at the L3-L4 and L5-S1 intravertebral discs without associated osseous change to confirm presence of osteomyelitis discitis. History of HIV. Comparison: May 29, 2016 noncontrast MRI. July 20, [address] demonstrating postsurgical change of L3-L4 and L4-L5 LEFT laminectomy. Technique: [employer] 1.5 Mag [id number] with GEM suite. 20 mL ProHance IV contrast administered. Postcontrast sagittal and axial series of the lumbar sacral spine obtained. Report: There is osseous enhancement from the inferior endplate of L3 through the superior endplate of S1 as well as significant anterior and posterior epidural enhancement most confluent at the L4, L5, and S1 levels. The constellation of findings in the correct clinical setting is most consistent with multilevel osteomyelitis and epidural phlegmon. At the LEFT posterior lateral L5-S1 and S1 level there is a loculated epidural fluid collection measuring up to 0.9 cm AP by 1.8 cm transverse by 2.1 cm cephalocaudal consistent with epidural abscess. Anterior and lateral paravertebral inflammatory change with enhancement in the same distribution. Less specific enhancement of the partially atrophied LEFT posterior paraspinal musculature noted. No pathologic fracture evident. Negative for enhancement in the distribution of the well-circumscribed T2 hyperintensity at the L5-S1 disc on the exam of one day prior. This may represent hematoma or seroma related to severe disc degeneration or previous partial discectomy however abscess collection at the disc space is not excluded given the full spectrum of surrounding inflammatory findings. IMPRESSION: 1. In the correct clinical setting the constellation of findings is consistent with multilevel lumbar sacral spine osteomyelitis and epidural phlegmon with resulting severe acquired central canal stenosis most marked at the L5-S1 level. At the LEFT posterior lateral L5-S1 and S1 level there is a loculated epidural fluid collection measuring up to 0.9 cm AP by 1.8 cm transverse by 2.1 cm cephalocaudal consistent with epidural abscess. 2. Negative for enhancement in the distribution of the well-circumscribed T2 hyperintensity at the L5-S1 disc on the exam of one day prior. This may represent hematoma or seroma related to severe disc degeneration or previous partial discectomy however abscess collection at the disc space is not excluded given the full spectrum of surrounding inflammatory findings. Results discussed with Dr. Chapin 05/30/2016 11:41 AM EST
--- NOTE | 2016-05-30 14:12 | CONSULT ---
Consult Consult: Neurosurgery Consult Date of consult: 05/30/16 Reason for consult: Back pain HPI: This is a 60 year old male with past medical history significant for type 2 diabetes, HIV and Hepatitis C who [place] [facility] [place] with multiple medical complaints. This morning he complains of low back, groin, bilateral buttock and proximal thigh pain in addition to abdominal pain. Pain in the lower extremities is worsened with leg movements and improved with laying supine. He also reports numbness and weakness of the bilateral lower extremities stating that he has not been able to stand or walk for the past 3 weeks secondary to pain and weakness. Per the patient he has had episodes of urinary incontinence as well as retention. He denies bilateral upper extremity numbness, tingling, weakness and pain and neck pain. Past medical history: 1. Type II Diabetes 2. HIV 3. Hepatitis C 4. GERD Allergies: No known allergies Medications: 1. Amitriptyline TAB* [Elavil TAB*] 75 mg PO BEDTIME 05/27/16 [History Confirmed 05/27/16] 2. Aspirin EC Low Dose* [Ecotrin EC Low Dose*] 81 mg PO DAILY 05/27/16 [History Confirmed 05/27/16] 3. Atorvastatin* [Lipitor*] 20 mg PO DAILY 05/27/16 [History Confirmed 05/27/16] 4. Cetirizine* [ZyrTEC*] 10 mg PO DAILY 05/27/16 [History Confirmed 05/27/16] 5. Rvynbkmqwbzlk-Byxvmxbbyoo-Thzf [Odefsey 200-25-25 mg] 1 tab PO DAILY [History Confirmed 05/27/16] 6. Insulin GLARGINE(*) [Lantus(*)] 48 units SUBCUT BID 05/27/16 [History Confirmed 05/27/16] 7. Insulin REGULAR(*) 0 - 100 units SUBCUT TID 05/27/16 [History Confirmed 05/27] 8. Lisinopril [Lisinopril 40 MG-] 40 mg PO DAILY 05/27/16 [History Confirmed 11/03] 9. Meloxicam(NF) [Mobic(NF)] 7.5 mg PO BID 05/27/16 [History Confirmed 05/27/16] 10. Omeprazole CAP* [Prilosec CAP* 20 MG] 20 mg PO DAILY 05/27/16 [History Confirmed 05/27/16] 11. Polyethylene Glycol 3350* [Miralax*] 17 gm PO DAILY 05/27/16 [History Confirmed 05/27/16] 12. Psyllium AROLDO* [Metamucil AROLDO*] 1 pkt PO DAILY 05/27/16 [History Confirmed ] 13. Pyridoxine TAB* [Vitamin B6 TAB*] 100 mg PO BID 05/27/16 [History Confirmed 05/27/16] 14. metFORMIN* [Glucophage*] 1,000 mg PO BID 05/27/16 [History Confirmed ] ROS: Full ROS completed; pertinent findings stated in HPI, all others negative. Physical Exam: Vital Signs: Temp Pulse Resp BP Pulse Ox 98.3 F 98 18 156/93 94 05/30/16 07:39 05/30/16 07:39 05/30/16 10:32 05/30/16 07:39 05/30/16 07:39 General: Patient unable to remain alert and awake during interview and exam. Laying supine in bed, no distress. HEENT: Head is normocephalic and atraumatic. EOMI and PERRLA. Gross hearing intact. Moist mucus membranes. CV: Radial pulses 2+ and equal. Pedal pulses palpable. Lungs: Breathing is nonlabored. Lungs are clear. Abdomen: Abdomen is distended and diffusely tender to palpation. Hypoactive bowel sounds. Neuro: CN II-XII intact. Sensation intact. Giveway weakness with bilateral lower extremity strength testing. SLR negative bilaterally. Extremities: Full ROM throughout. Laboratory Values WBC 8.6 10^3/ul (3.5-10.8) 05/30/16 05:43 RBC 3.73 10^6/ul (4.0-5.4) L 05/30/16 05:43 Hgb 12.0 g/dl (14.0-18.0) L 05/30/16 05:43 Hct 37 % (42-52) L 05/30/16 05:43 MCV 98 fL (80-94) H 05/30/16 05:43 MCH 32 pg (27-31) H 05/30/16 05:43 MCHC 33 g/dl (31-36) 05/30/16 05:43 RDW 12 % (10.5-15) 05/30/16 05:43 Plt Count 265 10^3/ul (150-450) 05/30/16 05:43 MPV 7 um3 (7.4-10.4) L 05/30/16 05:43 Immature Gran % (Auto) 3 % (0-9) 05/27/16 13:35 Neut % (Auto) 66.1 % (38-83) 05/30/16 05:43 Lymph % (Auto) 11.0 % (25-47) L 05/30/16 05:43 Frontier % (Auto) 17.7 % (1-9) H 05/30/16 05:43 Eos % (Auto) 4.3 % (0-6) 05/30/16 05:43 Baso % (Auto) 0.9 % (0-2) 05/30/16 05:43 Absolute Neuts (auto) 5.7 10^3/ul (1.5-7.7) 05/30/16 05:43 Absolute Lymphs (auto) 0.9 10^3/ul (1.0-4.8) L 05/30/16 05:43 Absolute Monos (auto) 1.5 10^3/ul (0-0.8) H 05/30/16 05:43 Absolute Eos (auto) 0.4 10^3/ul (0-0.6) 05/30/16 05:43 Absolute Basos (auto) 0.1 10^3/ul (0-0.2) 05/30/16 05:43 Absolute Nucleated RBC 0 10^3/ul 05/30/16 05:43 Neutrophils % 85 % (38-83) H 05/27/16 13:35 Band Neutrophils % 2 % (0-8) 05/27/16 13:35 Lymphocytes % 7 % (25-47) L 05/27/16 13:35 Monocytes % 4 % (0-13) 05/27/16 13:35 Basophils % 1 % (0-2) 05/27/16 13:35 Metamyelocytes % 1 % (0-2) 05/27/16 13:35 Nucleated RBC % 0 05/30/16 05:43 Normal RBC Morphology Normal (Normal) 05/27/16 13:35 INR (Anticoag Therapy) 0.92 (0.89-1.11) 05/27/16 13:35 Sodium 135 mmol/L (133-145) 05/30/16 05:43 Potassium 4.5 mmol/L (3.5-5.0) 05/30/16 05:43 Chloride 103 mmol/L (101-111) 05/30/16 05:43 Carbon Dioxide 29 mmol/L (22-32) 05/30/16 05:43 Anion Gap 3 mmol/L (2-11) 05/30/16 05:43 BUN 14 mg/dL (6-24) 05/30/16 05:43 Creatinine 0.79 mg/dL (0.67-1.17) 05/30/16 05:43 Est GFR ( Amer) 128.7 (>60) 05/30/16 05:43 Est GFR (Non-Af Amer) 100.0 (>60) 05/30/16 05:43 BUN/Creatinine Ratio 17.7 (8-20) 05/30/16 05:43 Glucose 116 mg/dL (70-100) H 05/30/16 05:43 POC Glucose (mg/dL) 168 mg/dL (74-106) H 05/30/16 11:23 Lactic Acid 1.4 mmol/L (0.5-2.0) 05/27/16 20:11 Calcium 8.8 mg/dL (8.6-10.3) 05/30/16 05:43 Magnesium 2.3 mg/dL (1.9-2.7) 05/27/16 13:35 Total Bilirubin 0.70 mg/dL (0.2-1.0) 05/29/16 06:22 Direct Bilirubin 0.10 mg/dL (0.03-0.18) 05/29/16 06:22 Indirect Bilirubin 0.6 mg/dL (0.3-1.0) 05/29/16 06:22 AST 106 U/L (13-39) H 05/29/16 06:22 ALT 57 U/L (7-52) H 05/29/16 06:22 Alkaline Phosphatase 44 U/L (34-104) 05/29/16 06:22 Total Creatine Kinase 781 U/L (10-223) H 05/27/16 13:35 Troponin I 0.03 ng/mL (<0.04) 05/27/16 20:11 C-Reactive Protein 19.40 mg/L (< 5.00) H 05/27/16 13:35 B-Natriuretic Peptide 40 pg/mL (-100) 05/27/16 13:35 Total Protein 6.3 g/dL (6.4-8.9) L 05/29/16 06:22 Albumin 3.6 g/dL (3.2-5.2) 05/29/16 06:22 Globulin 2.7 g/dL (2-4) 05/29/16 06:22 Albumin/Globulin Ratio 1.3 (1-3) 05/29/16 06:22 Amylase 69 U/L (29-103) 05/27/16 13:35 Lipase 67 U/L (11.0-82.0) 05/28/16 05:18 Urine Color Skylar 05/27/16 17:40 Urine Appearance Cloudy 05/27/16 17:40 Urine pH 5.0 (5-9) 05/27/16 17:40 Ur Specific Beulah 1.014 (1.010-1.030) 05/27/16 17:40 Urine Protein 2+(100 mg/dl) (Negative) H 05/27/16 17:40 Urine Ketones Negative (Negative) 05/27/16 17:40 Urine Blood 3+ (Negative) H 05/27/16 17:40 Urine Nitrate Negative (Negative) 05/27/16 17:40 Urine Bilirubin Negative (Negative) 05/27/16 17:40 Urine Urobilinogen Negative (Negative) 05/27/16 17:40 Ur Leukocyte Esterase Trace (Negative) H 05/27/16 17:40 Urine WBC (Auto) 3+(>20/hpf) (Absent) H 05/27/16 17:40 Urine RBC (Auto) 3+(>10/hpf) (Absent) H 05/27/16 17:40 Ur Squamous Epith Cells Present (Absent) H 05/27/16 17:40 Urine Bacteria Absent (Absent) 05/27/16 17:40 Hyaline Casts Present (Absent) H 05/27/16 17:40 Urine Glucose 3+(>=500 mg/dl) (Negative) H 05/27/16 17:40 Blood Type A Positive 05/27/16 13:35 Antibody Screen Negative 05/27/16 13:35 Imagin. MRI with contrast of the lumbar spine on 05/30/16 shows possible epidural abscess from L3 to the mid sacrum, increased disc signal at L5-S1 and post- operative changes at L4-5. Assessment: This is a 60 year old male with possible lumbar epidural abscess given presentation, laboratory results and MRI findings. He is likely to need surgical intervention for treatment of this condition. Plan: 1. Dr. Fermin Neurosurgery for further evaluation and surgical plan.
--- NOTE | 2016-05-30 17:12 | CONS ---
CONSULTATION REPORT: DATE OF CONSULT: 05/30/16 REQUESTING PHYSICIAN: Harsh Chapin MD CONSULTING SERVICE: Infectious Disease. REASON FOR CONSULTATION: Epidural abscess. IMPRESSION: 1. Four to five months of worsening low back pain with recent inability to pass stools or urine. MRI shows multilevel vertebral osteodiskitis, looks like L3 through S1 and associated epidural phlegmon and L5-S1 loculated epidural fluid collection. If this has been going on for a couple of months, more chronic process, the microbiologic differential would include tuberculosis or the usual organisms like staph and strep with lower likelihood of Gram- negatives. If this is more of an [id number]-[id number] back pain process. 2. Human immunodeficiency virus: Unclear what his last CD4 count was. 3. History of latent tuberculosis infection, treated with 9 months of isoniazid in the . 4. Obstipation and urinary retention. 5. Bilateral lower extremity weakness. RECOMMENDATIONS: 1. Continue ceftriaxone. Stop Flagyl. He will have culture material obtained at the time of the surgery. Please include acid-fast bacterial and anaerobic cultures. 2. Hold his antiretroviral therapy while he has his metabolic abnormalities and is not taking oral medications. 3. Check blood culture. HISTORY OF PRESENT ILLNESS: This 60-year-old man with HIV and hepatitis C admitted with low-back pain. He notes months of low back pain and then worsening over the last couple of months to the point that he has been at wheelchair because of leg weakness and pain. He came to the hospital because of obstipation, no bowel movements for 5 days and abdominal bloating, minimal passage of urine. He has had no fever. He had a leukocytosis of 21,000. On admission, he had volume resuscitation and ceftriaxone and Flagyl. His white count is down to 8 today. Because of impressive and significant back pain, he had an MRI with findings as above. Dr. Osorio from Neurosurgery is going to see him. Urine culture is negative. He notes having latent tuberculosis treated in the with 9 months of isoniazid after finding a positive tuberculin skin test. He has no known TB contacts and does not think he ever had active tuberculosis. He has no pain elsewhere. He has no prosthetic material present. He does not provide details of the HIV infection. PAST MEDICAL HISTORY: 1. HIV. 2. Hepatitis C. Viral load negative. 3. Chronic low back pain. 4. Type 2 diabetes. 5. Gastroesophageal reflux disease. 6. Tobacco abuse. MEDICATIONS: 1. Ceftriaxone. 2. Flagyl. 3. Pantoprazole. 4. Zofran. 5. Lisinopril. 6. Insulin glargine. 7. Heparin subcutaneous injection. ALLERGIES: No known drug allergies. SOCIAL HISTORY: He is incarcerated at [facility]. No sick contacts. FAMILY HISTORY: No recurrent infections. REVIEW OF SYSTEMS: All negative as noted above. PHYSICAL EXAMINATION: GENERAL: He is awake and oriented x3, in no acute distress. VITAL SIGNS: Temperature 37, heart rate 90, respiratory rate 18, blood pressure 150/90, and O2 sat 94% on room air. HEENT: There is no conjunctival hemorrhage. Oropharynx without lesions. NECK: Neck was supple without nuchal rigidity. LYMPH NODES: There is no cervical, supraclavicular, inguinal, axillary, or epitrochlear lymphadenopathy. LUNGS: Clear to auscultation bilaterally. HEART: Regular rate and rhythm without murmurs, rubs, or gallops. ABDOMEN: Mildly distended. There are decreased bowel sounds. Diffuse tenderness to palpation. There is no rebound. MUSCULOSKELETAL: There is lumbar spine tenderness to palpation. There is no joint synovitis. SKIN: There are no rashes or hemorrhages. NEUROLOGIC: Follows all commands. Moves all extremities. Strength is 5/5 in the tibialis anterior gastrocnemius bilaterally and 4/4 in quadriceps bilaterally. DIAGNOSTIC STUDIES/LABORATORY DATA: Creatinine is 0.8. White blood cell count 8, hemoglobin 12, and platelets 265. Urinalysis shows blood. Please see impressions and recommendations as outlined above, which I have discussed with Dr. Chapin. I will be away next week, but will return on Thursday , the . [id number]/[facility] #: [id number] [facility]
[2016-05-30] MEDS: cefTRIAXone VIAL(*) 1,000 MG in NS 0.9% 50 ML* 50 ML IVPB SCH (17:26)
--- NOTE | 2016-05-30 18:43 | PN ---
Subjective Date of Service: 05/30/16 Interval History: No BM or flatus since yesterday. +abdominal pain. No N/V. Feels hungry. Objective Active Medications: Amlodipine Besylate (Norvasc Tab*) 5 mg PO DAILY [facility] Dextrose (D50w Syringe 50 Ml*) 12.5 gm IV PUSH .FOR FS < 60 - SS PRN PRN Reason: FS < 60 Gadoteridol (Prohance* (Contrast)) 20 ml IV ONCE NR Stop: 06/01/16 11:03 Ceftriaxone Sodium 1,000 mg/ (Sodium Chloride) 50 mls @ 200 mls/hr IVPB Q24H [facility] Last Admin: 05/30/16 17:26 Dose: 200 mls/hr Sodium Chloride (Ns 0.9% 1000 Ml*) 1,000 mls @ 75 mls/hr IV PER RATE [facility] Last Admin: 05/30/16 18:12 Dose: 75 mls/hr Insulin Glargine (Lantus(*)) 30 units SUBCUT Q24H [facility] Last Admin: 05/30/16 06:11 Dose: 30 unit Insulin Glargine (Lantus(*)) 15 units SUBCUT Q24H [facility] Last Admin: 05/29/16 21:09 Dose: 15 units Insulin Human Lispro (Humalog*) 0 units SUBCUT ACHS [facility] PRN Reason: Protocol Last Admin: 05/30/16 17:26 Dose: Not Given Lisinopril (Prinivil Tab*) 40 mg PO DAILY [facility] Last Admin: 05/30/16 09:32 Dose: 40 mg Lorazepam (Ativan Inj*) 1 mg IV PUSH Q6H PRN PRN Reason: ANXIETY Last Admin: 05/29/16 19:54 Dose: 1 mg Morphine Sulfate (Morphine Inj (Syringe)*) 2 mg IV Q3H PRN PRN Reason: PAIN Last Admin: 05/30/16 17:26 Dose: 2 mg Nicotine (Nicotine Inhaler*) 10 mg INH Q2H PRN PRN Reason: CRAVING Last Admin: 05/27/16 19:59 Dose: 10 mg Ondansetron HCl (Zofran Inj*) 4 mg IV Q6H PRN PRN Reason: NAUSEA Last Admin: 05/29/16 18:26 Dose: 4 mg Pantoprazole Sodium (Protonix Iv*) 40 mg IV DAILY [facility] Last Admin: 05/30/16 09:33 Dose: 40 mg Psyllium Hydrophilic Mucilloid (Metamucil Bryan*) 1 pkt PO DAILY [facility] Last Admin: 05/30/16 09:33 Dose: 1 pkt Senna (Senokot Tab*) 2 tab PO BEDTIME PRN PRN Reason: CONSTIPATION Last Admin: 05/29/16 19:54 Dose: 2 tab Vital Signs 05/29/16 05/29/16 05/29/16 18:46 19:28 19:54 Temperature 99.8 F Pulse Rate 102 Respiratory 16 18 16 Rate Blood Pressure 151/85 (mmHg) O2 Sat by Pulse 94 Oximetry 05/29/16 05/29/16 05/30/16 20:00 20:54 00:13 Temperature 98.3 F Pulse Rate 95 Respiratory 18 18 16 Rate Blood Pressure 192/92 (mmHg) O2 Sat by Pulse 89 Oximetry 05/30/16 05/30/16 05/30/16 00:23 01:23 04:33 Temperature Pulse Rate Respiratory 20 18 16 Rate Blood Pressure (mmHg) O2 Sat by Pulse Oximetry 05/30/16 05/30/16 05/30/16 05:33 07:39 08:00 Temperature 98.3 F Pulse Rate 98 Respiratory 18 18 Rate Blood Pressure 156/93 (mmHg) O2 Sat by Pulse 94 Oximetry 05/30/16 05/30/16 05/30/16 09:32 10:32 15:14 Temperature 98.7 F Pulse Rate 96 Respiratory 18 18 18 Rate Blood Pressure 165/86 (mmHg) O2 Sat by Pulse 95 Oximetry 05/30/16 17:26 Temperature Pulse Rate Respiratory 18 Rate Blood Pressure (mmHg) O2 Sat by Pulse Oximetry Oxygen Devices in Use Now: None Appearance: NAD, interactive Eyes: No Scleral Icterus, PERRLA Ears/Nose/Mouth/Throat: NL Teeth, Lips, Gums, Clear Oropharnyx, Mucous Membranes Moist Neck: NL Appearance and Movements; NL JVP, Trachea Midline Respiratory: Symmetrical Chest Expansion and Respiratory Effort, Clear to Auscultation Cardiovascular: NL Sounds; No Murmurs; No JVD, RRR Abdominal: NL Sounds; No Tenderness; No Distention, - - non tender but quite distened, hypoactive BS Extremities: No Edema Skin: No Rash or Ulcers Neurological: Alert and Oriented x 3, - - strength intact, sensation intact Result Diagrams: 05/30/16 05:43 05/30/16 05:43 Additional Lab and Data: Lab Results 05/27/16 Range/Units 13:35 WBC Pending RBC 4.43 (4.0-5.4) 10^6/ul Hgb 14.0 (14.0-18.0) g/dl Hct 44 (42-52) % MCV 99 H (80-94) fL MCH 32 H (27-31) pg MCHC 32 (31-36) g/dl RDW 13 (10.5-15) % Plt Count Pending MPV Pending Neut % (Auto) Pending Lymph % (Auto) Pending Kimble % (Auto) Pending Eos % (Auto) Pending Baso % (Auto) Pending Absolute Neuts (auto) Pending Absolute Lymphs (auto) Pending Absolute Monos (auto) Pending Absolute Eos (auto) Pending Absolute Basos (auto) Pending Absolute Nucleated RBC Pending Nucleated RBC % Pending Microbiology and Other Data: Microbiology 05/27/16 18:50 Nasal Screen MRSA (PCR)([facility]) - Final Nasal Mrsa Negative Assess/Plan/Problems-Billing Assessment: 60 yo M h/o HIV (unknown VL or CD4), DM2, GERD, chronic back pain p/w abdominal pain and obstipation lumbar osteodiskitis with associated phlegmon and severe cord compression - Patient Problems (1) Osteomyelitis Comment: Of lumbar spine with associated phlegmon (?abscess) IR to drain tomorrow (05/31) with cultues and AFB sent to lab Neurosurgery (Dr. Fermin) following over the weekend and will continue to see Will need 8 weeks abx after source control (2) Sepsis Comment: Severe, present on admission with epidural collection most likely source appreciate ID consult c/w CTX d/c flagyl (3) Obstipation Comment: Unclear etiology. In review with radiology they do think the spinal stenosis could cause these symptoms however neurosurgery does not agree. He has had BMs since admission but none since yesterday. His abdomen remains benign (4) Diabetes Comment: hypoglycemic on AM labs decrease 30BId to 30 in AM and 15U in PM Basal bolus insulin (5) HIV (human immunodeficiency virus infection) Comment: Check VL and CD4 count Hold ART in setting of obstipation (6) Elevated troponin Comment: suspect demand (7) Acute kidney failure Comment: resolved c/w NS (8) DVT prophylaxis Comment: HSQ
[2016-05-31] MEDS: Morphine INJ* 2 MG/ML 1 ML CARPUJECT IV PRN ×4 (05:09→21:00)
[2016-05-31] MEDS: Insulin GLARGINE(*) 1 UNITS UNIT SUBCUT SCH ×2 (06:18→21:01)
[2016-05-31] MEDS: Insulin LISPRO* 1 UNITS UNIT SUBCUT SCH ×4 (08:40→21:00)
[2016-05-31] MEDS: Psyllium PAK PO SCH (08:41)
[2016-05-31] MEDS: Pantoprazole IV* 40 MG IV SCH (08:41)
[2016-05-31] MEDS: Lisinopril TAB* 10 MG PO SCH (08:41)
[2016-05-31] MEDS: amLODIPine TAB* 5 MG PO SCH (08:41)
[2016-05-31] MEDS: Senna TAB PO PRN (08:41)
--- NOTE | 2016-05-31 09:11 | PN ---
Subjective Date of Service: 05/31/16 Interval History: Patient reports no BM since admission 4 days ago. Has passed gas. No real output from enema. Has abdominal bloating, mild pain. Has had bowel dysfunction for 9 months. Main issues is severe low back pain, and pain in both legs when weight bearing. Family History: Unchanged from Admission Social History: Unchanged from Admission Past Medical History: Findings - reports epidural steroid injection in LS spine 1 yr ago [facility] Objective Active Medications: Amlodipine Besylate (Norvasc Tab*) 5 mg PO DAILY [facility] Last Admin: 05/31/16 08:41 Dose: 5 mg Dextrose (D50w Syringe 50 Ml*) 12.5 gm IV PUSH .FOR FS < 60 - SS PRN PRN Reason: FS < 60 Gadoteridol (Prohance* (Contrast)) 20 ml IV ONCE NR Stop: 06/01/16 11:03 Ceftriaxone Sodium 1,000 mg/ (Sodium Chloride) 50 mls @ 200 mls/hr IVPB Q24H [facility] Last Admin: 05/30/16 17:26 Dose: 200 mls/hr Sodium Chloride (Ns 0.9% 1000 Ml*) 1,000 mls @ 75 mls/hr IV PER RATE [facility] Last Admin: 05/30/16 23:45 Dose: 75 mls/hr Insulin Glargine (Lantus(*)) 30 units SUBCUT Q24H [facility] Last Admin: 05/31/16 06:18 Dose: 30 unit Insulin Glargine (Lantus(*)) 15 units SUBCUT Q24H [facility] Last Admin: 05/30/16 21:10 Dose: 15 units Insulin Human Lispro (Humalog*) 0 units SUBCUT ACHS [facility] PRN Reason: Protocol Last Admin: 05/31/16 08:40 Dose: 6 units Lisinopril (Prinivil Tab*) 40 mg PO DAILY [facility] Last Admin: 05/31/16 08:41 Dose: 40 mg Lorazepam (Ativan Inj*) 1 mg IV PUSH Q6H PRN PRN Reason: ANXIETY Last Admin: 05/29/16 19:54 Dose: 1 mg Morphine Sulfate (Morphine Inj (Syringe)*) 2 mg IV Q3H PRN PRN Reason: PAIN Last Admin: 05/31/16 08:40 Dose: 2 mg Nicotine (Nicotine Inhaler*) 10 mg INH Q2H PRN PRN Reason: CRAVING Last Admin: 05/27/16 19:59 Dose: 10 mg Ondansetron HCl (Zofran Inj*) 4 mg IV Q6H PRN PRN Reason: NAUSEA Last Admin: 05/29/16 18:26 Dose: 4 mg Pantoprazole Sodium (Protonix Iv*) 40 mg IV DAILY [facility] Last Admin: 05/31/16 08:41 Dose: 40 mg Psyllium Hydrophilic Mucilloid (Metamucil Bryan*) 1 pkt PO DAILY [facility] Last Admin: 05/31/16 08:41 Dose: 1 pkt Senna (Senokot Tab*) 2 tab PO BEDTIME PRN PRN Reason: CONSTIPATION Last Admin: 05/31/16 08:41 Dose: 2 tab Vital Signs 05/30/16 05/30/16 05/31/16 20:58 21:58 00:10 Temperature 36.7 C Pulse Rate 103 Respiratory 20 20 15 Rate Blood Pressure 165/84 (mmHg) O2 Sat by Pulse 96 Oximetry 05/31/16 05/31/16 07:58 08:40 Temperature 36.6 C Pulse Rate 91 Respiratory 18 18 Rate Blood Pressure 152/94 (mmHg) O2 Sat by Pulse 97 Oximetry Oxygen Devices in Use Now: None Appearance: alert, no distress Eyes: No Scleral Icterus Ears/Nose/Mouth/Throat: Clear Oropharnyx Respiratory: Clear to Auscultation, Clear to Percussion Cardiovascular: NL Sounds; No Murmurs; No JVD, No Edema Abdominal: No Hepatosplenomegaly, - - absent BS throughout, no masses Lymphatic: No Cervical Adenopathy Extremities: No Edema Neurological: Alert and Oriented x 3, - - motor 5/5 LE bilat Lines/Tubes/Other Access: Clean, Dry and Intact PICC Line Nutrition: Taking PO's Result Diagrams: 05/30/16 05:43 05/30/16 05:43 Additional Lab and Data: Lab Results Laboratory Tests 05/30/16 05/30/16 05/30/16 05:43 07:32 11:23 WBC 8.6 Hgb 12.0 L Hct 37 L Plt Count 265 POC Glucose (mg/dL) 130 H 168 H 05/30/16 05/30/16 05/31/16 17:26 21:02 07:24 WBC Hgb Hct Plt Count POC Glucose (mg/dL) 115 H 88 206 H Microbiology and Other Data: Microbiology 05/27/16 18:50 Nasal Screen MRSA (PCR)([facility]) - Final Nasal Mrsa Negative Assess/Plan/Problems-Billing Assessment: 60 yo M h/o HIV (unknown VL or CD4), DM2, GERD, chronic back pain p/w abdominal pain and obstipation lumbar osteodiskitis with associated phlegmon and spinal stenosis symptoms - Patient Problems (1) Ileus, unspecified Current Visit: Yes Status: Acute Priority: Medium Code(s): K56.7 - ILEUS, UNSPECIFIED SNOMED Code(s): 65448728 Comment: With quiet bowel sounds, this is more ileus than constipation. May also have element of opiate-induced constipation. Will ambulate, give lactulose PO. Will consider stopping IV opiates after drainage procedure. (2) DVT prophylaxis Current Visit: Yes Status: Acute Priority: Low Code(s): IJJ0894 - SNOMED Code(s): 228434277 Comment: HSQ (3) Diabetes Current Visit: Yes Status: Acute Code(s): E11.9 - TYPE 2 DIABETES MELLITUS WITHOUT COMPLICATIONS SNOMED Code(s): 30574552 Comment: -insulin adjusted yesterday, reasonable control today -continue Basal bolus insulin (4) HIV (human immunodeficiency virus infection) Current Visit: Yes Status: Acute Priority: Medium Comment: VL and CD4 count pending Hold ART in setting of obstipation (5) Osteomyelitis Current Visit: Yes Status: Acute Code(s): M86.9 - OSTEOMYELITIS, UNSPECIFIED SNOMED Code(s): 37172198 Comment: Of lumbar spine with associated phlegmon (?abscess) IR to drain today (05/31) with cultues and AFB sent to lab Neurosurgery (Dr. Fermin) following over the weekend, case discussed directly Will need 8 weeks abx after source control WBC improving, will follow. Some of spinal stenosis symptoms may improve as infection improves. May need elective LS surgery in future after infection cleared.
--- NOTE | 2016-05-31 09:39 | PN ---
Progress Note - Progress Note Note: A: back pain, worsening when standing up, pass gas and some small amount BM after enema, no urinary incontinence, Vital Signs Temp 97.8 F 05/31/16 07:58 Pulse 91 05/31/16 07:58 Resp 18 05/31/16 08:40 BP 152/94 05/31/16 07:58 Pulse Ox 97 05/31/16 07:58 Intake & Output 05/30/16 05/31/16 05/31/16 19:59 07:59 19:59 Intake Total 1020 2745 Output Total 2400 Balance 1020 345 Intake: IV Fluids 1576 NS 1576 IVPB 100 169 ABX - FLAGYL 100 NS 169 Oral 920 1000 Output: Urine 2400 Other: Estimated Void Large Large # Bowel Movements 0 0 # Voids 1 2 CN 2-12 intact, BLE motor 5/5, sensation intact to LT, Gait stable ABD distention with MRI showed L4/5/S1 changed consisting with osteomylitis, diskitis and associated phlegmon and stenosis Laboratory Results WBC 8.6 10^3/ul (3.5-10.8) 05/30/16 05:43 RBC 3.73 10^6/ul (4.0-5.4) L 05/30/16 05:43 Hgb 12.0 g/dl (14.0-18.0) L 05/30/16 05:43 Hct 37 % (42-52) L 05/30/16 05:43 MCV 98 fL (80-94) H 05/30/16 05:43 MCH 32 pg (27-31) H 05/30/16 05:43 MCHC 33 g/dl (31-36) 05/30/16 05:43 RDW 12 % (10.5-15) 05/30/16 05:43 Plt Count 265 10^3/ul (150-450) 05/30/16 05:43 MPV 7 um3 (7.4-10.4) L 05/30/16 05:43 Immature Gran % (Auto) 3 % (0-9) 05/27/16 13:35 Neut % (Auto) 66.1 % (38-83) 05/30/16 05:43 Lymph % (Auto) 11.0 % (25-47) L 05/30/16 05:43 [place] % (Auto) 17.7 % (1-9) H 05/30/16 05:43 Eos % (Auto) 4.3 % (0-6) 05/30/16 05:43 Baso % (Auto) 0.9 % (0-2) 05/30/16 05:43 Absolute Neuts (auto) 5.7 10^3/ul (1.5-7.7) 05/30/16 05:43 Absolute Lymphs (auto) 0.9 10^3/ul (1.0-4.8) L 05/30/16 05:43 Absolute Monos (auto) 1.5 10^3/ul (0-0.8) H 05/30/16 05:43 Absolute Eos (auto) 0.4 10^3/ul (0-0.6) 05/30/16 05:43 Absolute Basos (auto) 0.1 10^3/ul (0-0.2) 05/30/16 05:43 Absolute Nucleated RBC 0 10^3/ul 05/30/16 05:43 Neutrophils % 85 % (38-83) H 05/27/16 13:35 Band Neutrophils % 2 % (0-8) 05/27/16 13:35 Lymphocytes % 7 % (25-47) L 05/27/16 13:35 Monocytes % 4 % (0-13) 05/27/16 13:35 Basophils % 1 % (0-2) 05/27/16 13:35 Metamyelocytes % 1 % (0-2) 05/27/16 13:35 Nucleated RBC % 0 05/30/16 05:43 Normal RBC Morphology Normal (Normal) 05/27/16 13:35 INR (Anticoag Therapy) 1.02 (0.89-1.11) 05/30/16 16:34 APTT 28.9 seconds (26.0-36.3) 05/30/16 16:34 Sodium 135 mmol/L (133-145) 05/30/16 05:43 Potassium 4.5 mmol/L (3.5-5.0) 05/30/16 05:43 Chloride 103 mmol/L (101-111) 05/30/16 05:43 Carbon Dioxide 29 mmol/L (22-32) 05/30/16 05:43 Anion Gap 3 mmol/L (2-11) 05/30/16 05:43 BUN 14 mg/dL (6-24) 05/30/16 05:43 Creatinine 0.79 mg/dL (0.67-1.17) 05/30/16 05:43 Est GFR ( Amer) 128.7 (>60) 05/30/16 05:43 Est GFR (Non-Af Amer) 100.0 (>60) 05/30/16 05:43 BUN/Creatinine Ratio 17.7 (8-20) 05/30/16 05:43 Glucose 116 mg/dL (70-100) H 05/30/16 05:43 POC Glucose (mg/dL) 206 mg/dL (74-106) H 05/31/16 07:24 Lactic Acid 1.4 mmol/L (0.5-2.0) 05/27/16 20:11 Calcium 8.8 mg/dL (8.6-10.3) 05/30/16 05:43 Magnesium 2.3 mg/dL (1.9-2.7) 05/27/16 13:35 Total Bilirubin 0.70 mg/dL (0.2-1.0) 05/29/16 06:22 Direct Bilirubin 0.10 mg/dL (0.03-0.18) 05/29/16 06:22 Indirect Bilirubin 0.6 mg/dL (0.3-1.0) 05/29/16 06:22 AST 106 U/L (13-39) H 05/29/16 06:22 ALT 57 U/L (7-52) H 05/29/16 06:22 Alkaline Phosphatase 44 U/L (34-104) 05/29/16 06:22 Total Creatine Kinase 781 U/L (10-223) H 05/27/16 13:35 Troponin I 0.03 ng/mL (<0.04) 05/27/16 20:11 C-Reactive Protein 19.40 mg/L (< 5.00) H 05/27/16 13:35 B-Natriuretic Peptide 40 pg/mL (-100) 05/27/16 13:35 Total Protein 6.3 g/dL (6.4-8.9) L 05/29/16 06:22 Albumin 3.6 g/dL (3.2-5.2) 05/29/16 06:22 Globulin 2.7 g/dL (2-4) 05/29/16 06:22 Albumin/Globulin Ratio 1.3 (1-3) 05/29/16 06:22 Amylase 69 U/L (29-103) 05/27/16 13:35 Lipase 67 U/L (11.0-82.0) 05/28/16 05:18 Urine Color Skylar 05/27/16 17:40 Urine Appearance Cloudy 05/27/16 17:40 Urine pH 5.0 (5-9) 05/27/16 17:40 Ur Specific Cedar 1.014 (1.010-1.030) 05/27/16 17:40 Urine Protein 2+(100 mg/dl) (Negative) H 05/27/16 17:40 Urine Ketones Negative (Negative) 05/27/16 17:40 Urine Blood 3+ (Negative) H 05/27/16 17:40 Urine Nitrate Negative (Negative) 05/27/16 17:40 Urine Bilirubin Negative (Negative) 05/27/16 17:40 Urine Urobilinogen Negative (Negative) 05/27/16 17:40 Ur Leukocyte Esterase Trace (Negative) H 05/27/16 17:40 Urine WBC (Auto) 3+(>20/hpf) (Absent) H 05/27/16 17:40 Urine RBC (Auto) 3+(>10/hpf) (Absent) H 05/27/16 17:40 Ur Squamous Epith Cells Present (Absent) H 05/27/16 17:40 Urine Bacteria Absent (Absent) 05/27/16 17:40 Hyaline Casts Present (Absent) H 05/27/16 17:40 Urine Glucose 3+(>=500 mg/dl) (Negative) H 05/27/16 17:40 Blood Type A Positive 05/27/16 13:35 Antibody Screen Negative 05/27/16 13:35 A/P: 60M, with history of 2 diabetes, HIV and Hepatitis C who presented with low back , proximal thigh pain, since last December, with abdominal pain and distention . Pain in the lower extremities is worsened with standing up. He has no significant neuro deficit, No surgical intervention needed at this time. Plan: IR tap for posterior fluid collection tap and culture, Infection disease consultation for osteomylitis, diskitis and HIV. continue Abx treatment, his WBC already improved, Continue ileus bowel management and DM treatment , Encourage OOB with LSO brace, PT and increase activity. If he has no response during treatment with followup MRI, or develops any new weakness, incontinence or other neuro deficits during the treatment , or still has persistent back pain and neurological claudication after treatment, He might need surgical decompression. Discuss with primary service and patient. will continue followup, please call us for any questions or concerns.
[2016-05-31] MEDS ORDERED: fentaNYL* 50 MCG/ML 2 ML VIAL (100 MCG VIAL) ONE (13:32)
--- NOTE | 2016-05-31 15:33 | RAD ---
CPT II Codes: 6045F Procedure: Fluoroscopically guided needle aspiration of potential left of midline L5/S1 epidural fluid collection INDICATION: Leukocytosis with a potential epidural fluid collection identified on recent MRI of the lumbar spine. COMPARISON: Contrast-enhanced MRI of the lumbar spine dated May 30, 2016 TECHNIQUE: The benefits and risks of the procedure were explained to the patient. The patient consented to the exam. A timeout was performed before beginning the procedure. The patient was prepped and draped in the usual sterile fashion. The patient was anesthetized with 1% lidocaine. Using fluoroscopic guidance a 20-gauge needle was advanced specifically at the left of midline L5/S1 intervertebral disc level. Positioning of the needle tip was confirmed in the AP and lateral projections. With the needle tip at the thecal sac the needle was slowly retracted while attempting to aspirate fluid at the possible epidural fluid collection unsuccessfully. Approximately 3 mL sterile saline was injected and rapidly extracted for the purposes of culture. According to the same technique the needle was readvanced to a slightly different location, this time slightly more inferior and medial. The needle was aspirated while slowly retracting the tip from the expected location of the thecal sac to the epidural area. No fluid was aspirated. Approximately 3 mL sterile saline was injected and abruptly aspirated and this "washing" was sent for culture and sensitivity. The patient tolerated the procedure well and returned to his inpatient room in stable condition with instructions to lay supine for a minimum of one hour. IMPRESSION: Medial aspiration was attempted at 2 different locations at the left of midline L5/S1 epidural space without aspiration of purulent or other fluid. At both levels sterile saline was injected and rapidly aspirated and these 2 samples were sent for culture and sensitivity.
[2016-05-31] MEDS: NS 0.9% 1000 ML* 1,000 ML IV SCH (16:39)
[2016-05-31] MEDS: cefTRIAXone VIAL(*) 1,000 MG in NS 0.9% 50 ML* 50 ML IVPB SCH (16:40)
[2016-06-01] MEDS: Morphine INJ* 2 MG/ML 1 ML CARPUJECT IV PRN ×2 (03:25→08:46)
[2016-06-01] MEDS: Insulin GLARGINE(*) 1 UNITS UNIT SUBCUT SCH ×2 (06:03→12:40)
[2016-06-01 06:07] LABS: Hematocrit 38 % (42-52); Hemoglobin 12.3 g/dl (14.0-18.0); Mean Corpuscular HGB Conc 33 g/dl (31-36); Mean Corpuscular Hemoglobin 32 pg (27-31); Mean Corpuscular Volume 98 fL (80-94); Mean Platelet Volume 7 um3 (7.4-10.4); Red Blood Count 3.86 10^6/ul (4.0-5.4); Red Cell Distribution Width 13 % (10.5-15); White Blood Count 10.3 10^3/ul (3.5-10.8)
[2016-06-01 06:08] LABS: Add Diff/Slide Review? Slide Review Added; Comments Flag Yes
[2016-06-01 06:21] LABS: BUN/Creatinine Ratio 13.9 (8-20); Calcium 9.3 mg/dL (8.6-10.3); EGFR African American 143.2 (>60); EGFR Non-African American 111.4 (>60)
[2016-06-01] MEDS: Psyllium PAK PO SCH (08:46)
[2016-06-01] MEDS: Pantoprazole IV* 40 MG IV SCH (08:46)
[2016-06-01] MEDS: Lisinopril TAB* 10 MG PO SCH (08:47)
[2016-06-01] MEDS: amLODIPine TAB* 5 MG PO SCH (08:47)
[2016-06-01] MEDS: Insulin LISPRO* 1 UNITS UNIT SUBCUT SCH ×4 (08:47→22:53)
--- NOTE | 2016-06-01 10:15 | PN ---
Progress Note - Progress Note SOAP: Subjective: A: Ambulated 2 times , still back pain, worsening when standing up, pass gas and some small amount BM after enema, no urinary incontinence, no fever chill, Vital Signs Temp 97.5 F 06/01/16 07:43 Pulse 92 06/01/16 07:43 Resp 18 06/01/16 08:46 BP 149/74 06/01/16 07:43 Pulse Ox 96 06/01/16 07:43 Intake & Output 05/31/16 06/01/16 06/01/16 19:59 07:59 19:59 Intake Total 2953 830 Output Total 925 Balance 2953 -95 Intake: IV Fluids 293 770 NS 293 770 IVPB 60 NS 60 Oral 2660 0 Output: Urine 925 Other: # Bowel Movements 0 # Voids 3 AAOx3 CN 2-12 intact, BLE motor 5/5, sensation intact to LT, Gait stable ABD distention with decrease BS MRI showed L4/5/S1 changed consisting with osteomylitis, diskitis and associated phlegmon and stenosis IR epidural aspiration showed dry tap, fluid after washout sent for culture Laboratory Results - last 24 hr 05/31/16 05/31/16 05/31/16 11:52 16:38 20:45 WBC RBC Hgb Hct MCV MCH MCHC RDW Plt Count MPV Neut % (Auto) Lymph % (Auto) [place] % (Auto) Eos % (Auto) Baso % (Auto) Absolute Neuts (auto) Absolute Lymphs (auto) Absolute Monos (auto) Absolute Eos (auto) Absolute Basos (auto) Absolute Nucleated RBC Nucleated RBC % Sodium Potassium Chloride Carbon Dioxide Anion Gap BUN Creatinine Est GFR ( Amer) Est GFR (Non-Af Amer) BUN/Creatinine Ratio Glucose POC Glucose (mg/dL) 229 H 249 H 390 H Calcium 06/01/16 06/01/16 06/01/16 05:40 05:40 07:19 WBC 10.3 RBC 3.86 L Hgb 12.3 L Hct 38 L MCV 98 H MCH 32 H MCHC 33 RDW 13 Plt Count 352 MPV 7 L Neut % (Auto) 58.1 Lymph % (Auto) 14.0 L Gall[place] % (Auto) 16.8 H Eos % (Auto) 9.6 H Baso % (Auto) 1.5 Absolute Neuts (auto) 6.0 Absolute Lymphs (auto) 1.4 Absolute Monos (auto) 1.7 H Absolute Eos (auto) 1.0 H Absolute Basos (auto) 0.2 Absolute Nucleated RBC 0.01 Nucleated RBC % 0.1 Sodium 133 Potassium 4.0 Chloride 103 Carbon Dioxide 25 Anion Gap 5 BUN 10 Creatinine 0.72 Est GFR ( Amer) 143.2 Est GFR (Non-Af Amer) 111.4 BUN/Creatinine Ratio 13.9 Glucose 189 H POC Glucose (mg/dL) 215 H Calcium 9.3 A/P: 60M, with history of 2 diabetes, HIV and Hepatitis C, prior lumbar decompression surgery, who presented with low back, proximal thigh pain since last December, with abdominal pain and distention. ambulated 2 times since yesterday, Pain in the lower extremities is worsened with standing up. He has no significant neuro deficit, No surgical intervention needed at this time. IR epidural aspiration showed dry tap, fluid after washout sent for culture Plan: Waiting for collection tap culture, Infection disease consultation for osteomylitis, diskitis and HIV. continue Abx treatment, his WBC already improved, Continue ileus bowel management and DM treatment per primary team, Encourage OOB with LSO brace, PT and increase activity. If he has no response during treatment with followup MRI, or develops any new weakness, incontinence or other neuro deficits during the treatment , or still has persistent back pain and neurological claudication after treatment, He might need surgical decompression. Discuss with primary service and patient. will continue followup, please call us for any questions or concerns.
[2016-06-01] MEDS ORDERED: Morphine INJ* 2 MG/ML 1 ML CARPUJECT IV PRN (11:41)
--- NOTE | 2016-06-01 11:52 | PN ---
Subjective Date of Service: 06/01/16 Interval History: Patient was able to walk around unit twice yesterday and once today. Had ?epidural abscess aspirated yesterday, but no fluid found. States pain in back and both legs unchanged. No BM since yesterday, but passing flatus. Family History: Unchanged from Admission Social History: Unchanged from Admission Past Medical History: Unchanged from Admission - reports epidural steroid injection in LS spine 1 yr ago [facility] Objective Active Medications: Amlodipine Besylate (Norvasc Tab*) [address] [facility] Last Admin: 06/01/16 08:47 Dose: 5 mg Dextrose (D50w Syringe 50 Ml*) 12.5 gm IV PUSH .FOR FS < 60 - SS PRN PRN Reason: FS < 60 Ceftriaxone Sodium 1,000 mg/ (Sodium Chloride) 50 mls @ 200 mls/hr IVPB Q24H [facility] Last Admin: 05/31/16 16:40 Dose: 200 mls/hr Sodium Chloride (Ns 0.9% 1000 Ml*) 1,000 mls @ 75 mls/hr IV PER RATE [facility] Last Admin: 05/31/16 16:39 Dose: 75 mls/hr Insulin Glargine (Lantus(*)) [address] [facility] Insulin Human Lispro (Humalog*) [address] [facility] PRN Reason: Protocol Last Admin: 06/01/16 08:47 Dose: 6 units Ketorolac Tromethamine (Toradol Inj*) 15 mg IV PUSH Q6H PRN PRN Reason: PAIN Lactulose (Lactulose*) [address] [facility] Last Admin: 06/01/16 08:43 Dose: 30 ml Lisinopril (Prinivil Tab*) [address] [facility] Last Admin: 06/01/16 08:47 Dose: 40 mg Lorazepam (Ativan Inj*) 1 mg IV PUSH Q6H PRN PRN Reason: ANXIETY Last Admin: 05/29/16 19:54 Dose: 1 mg Morphine Sulfate (Morphine Inj (Syringe)*) 2 mg IV Q6H PRN PRN Reason: PAIN Nicotine (Nicotine Inhaler*) 10 mg INH Q2H PRN PRN Reason: CRAVING Last Admin: 05/27/16 19:59 Dose: 10 mg (Movantic 25 Mg) [address] [facility] Ondansetron HCl (Zofran Inj*) 4 mg IV Q6H PRN PRN Reason: NAUSEA Last Admin: 05/29/16 18:26 Dose: 4 mg Pantoprazole Sodium (Protonix Iv*) 40 mg IV DAILY [facility] Last Admin: 06/01/16 08:46 Dose: 40 mg Psyllium Hydrophilic Mucilloid (Metamucil Bryan*) 1 pkt PO DAILY [facility] Last Admin: 06/01/16 08:46 Dose: 1 pkt Senna (Senokot Tab*) 2 tab PO BEDTIME PRN PRN Reason: CONSTIPATION Last Admin: 05/31/16 08:41 Dose: 2 tab Vital Signs 06/01/16 06/01/16 07:43 08:46 Temperature 36.4 C Pulse Rate 92 Respiratory 19 18 Rate Blood Pressure 149/74 (mmHg) O2 Sat by Pulse 96 Oximetry Oxygen Devices in Use Now: None Eyes: No Scleral Icterus Ears/Nose/Mouth/Throat: Clear Oropharnyx Neck: Trachea Midline Respiratory: Clear to Auscultation, Clear to Percussion Cardiovascular: NL Sounds; No Murmurs; No JVD, RRR Abdominal: No Hepatosplenomegaly, - - soft, distended, +BS, subjective RUQ tenderness Extremities: No Edema Neurological: Alert and Oriented x 3 Lines/Tubes/Other Access: Clean, Dry and Intact Peripheral IV Result Diagrams: 06/01/16 05:40 06/01/16 05:40 Additional Lab and Data: Lab Results Laboratory Tests 06/01/16 06/01/16 06/01/16 05:40 05:40 07:19 WBC 10.3 Hgb 12.3 L Hct 38 L Plt Count 352 Glucose 189 H POC Glucose (mg/dL) 215 H Microbiology and Other Data: Microbiology Fluid culture from aspirates pending Assess/Plan/Problems-Billing Assessment: 60 yo M h/o HIV (unknown VL or CD4), DM2, GERD, chronic back pain p/w abdominal pain and constipation vs ileus, here w/ lumbar osteo-discitis with associated phlegmon and spinal stenosis symptoms - Patient Problems (1) Ileus, unspecified Current Visit: Yes Status: Acute Priority: Medium Code(s): K56.7 - ILEUS, UNSPECIFIED SNOMED Code(s): 93398581 Comment: Bowel sounds improved. May also have element of opiate-induced constipation, Movantik ordered. Will ambulate, continue lactulose PO. Decreased IV opiates. (2) DVT prophylaxis Current Visit: Yes Status: Acute Priority: Low Code(s): RRV9883 - SNOMED Code(s): 932560416 Comment: subcut heparin (3) Diabetes Current Visit: Yes Status: Acute Code(s): E11.9 - TYPE 2 DIABETES MELLITUS WITHOUT COMPLICATIONS SNOMED Code(s): 20287061 Comment: -glucose control not ideal, increased total Lantus dose/day. -will allow to eat -continue Basal bolus insulin (4) HIV (human immunodeficiency virus infection) Current Visit: Yes Status: Acute Priority: Medium Comment: VL and CD4 count pending Hold ART in setting of obstipation Would ask Dr. Schmitt to comment on spinal aspirate tomorrow. (5) Osteomyelitis Current Visit: Yes Status: Acute Code(s): M86.9 - OSTEOMYELITIS, UNSPECIFIED SNOMED Code(s): 39816653 Comment: Of lumbar spine with associated phlegmon (?abscess) IR attempted aspiration yesterday (05/31) with cultues and AFB sent to lab Neurosurgery (Dr. Fermin) following over the weekend, case discussed directly Will need 8 weeks abx after bacteria identified. WBC improving, will follow. Added toradol for pain, and Lyrica for neuropathic pain. Some of spinal stenosis symptoms may improve as infection improves. May need elective LS surgery in future after infection cleared. Status and Disposition: Cannot return to [facility] until plan is reached for treating discitis, epidural infection
[2016-06-01] MEDS: Ketorolac INJ* 15 MG/ML 1 ML VIAL IV PUSH PRN ×2 (13:03→20:17)
[2016-06-01] MEDS: cefTRIAXone VIAL(*) 1,000 MG in NS 0.9% 50 ML* 50 ML IVPB SCH (17:06)
[2016-06-01] MEDS: Pregabalin CAP(*) 25 MG PO SCH (20:17)
[2016-06-01] MEDS: Senna TAB PO PRN (20:17)
[2016-06-02] MEDS: Insulin GLARGINE(*) 1 UNITS UNIT SUBCUT SCH ×3 (00:25→23:30)
[2016-06-02 07:32] LABS: Albumin 3.4 g/dL (3.2-5.2); Calcium 9.1 mg/dL (8.6-10.3); EGFR African American 113.6 (>60); EGFR Non-African American 88.3 (>60); Globulin 2.7 g/dL (2-4); Potassium 4.8 mmol/L (3.5-5.0); Total Bilirubin 0.4 mg/dL (0.2-1.0); Total Protein 6.1 g/dL (6.4-8.9)
[2016-06-02] MEDS: Pantoprazole IV* 40 MG IV SCH (08:23)
[2016-06-02] MEDS: Ketorolac INJ* 15 MG/ML 1 ML VIAL IV PUSH PRN ×2 (08:23→15:43)
[2016-06-02] MEDS: Psyllium PAK PO SCH (08:30)
[2016-06-02] MEDS: amLODIPine TAB* 5 MG PO SCH (08:31)
[2016-06-02] MEDS: Lisinopril TAB* 10 MG PO SCH (08:31)
[2016-06-02] MEDS: Pregabalin CAP(*) 25 MG PO SCH ×2 (08:31→21:33)
[2016-06-02] MEDS: Insulin LISPRO* 1 UNITS UNIT SUBCUT SCH ×4 (08:34→21:37)
[2016-06-02 10:04] LABS: % CD3 61 % (58-86); % CD4 23 % (32-64); % CD8 37 % (8-40); Absolute CD45 Count 0.98 thou/mcL (0.82-2.84)
--- NOTE | 2016-06-02 11:01 | PN ---
Progress Note - Progress Note SOAP: Subjective: [Patient continues to complain of low back pain with radiation to the bilateral lower extremities worse with walking and improved with laying down. He also complains of abdominal pain and constipation. He is passing flatus. He is eating without nausea, vomiting or increased abdominal discomfort. He is ambulating the nursing unit with pain increasing as distance lengthens. Denies new numbness, tingling weakness and pain. No headaches. PT evaluated and determined no idication for further treatment. ] Objective: [ Vital Signs: Temp Pulse Resp BP Pulse Ox 97.9 F 94 18 152/86 95 06/02/16 07:36 06/02/16 07:36 06/02/16 08:31 06/02/16 07:36 06/02/16 07:36 General: Alert and oriented. Abdomen: Distended and mildly tender. Neuro: Speech is clear and coherent. Strength intact throughout. Sensory intact. Extremities: Full ROM throughout. ] Assessment: [Stable. Awaiting results of biopsy. No new symptoms or changes. ] Plan: [1. Continue to encourage ambulation and getting out of bed. 2. Continue pain management.]
--- NOTE | 2016-06-02 11:22 | PN ---
Subjective Date of Service: 06/02/16 Interval History: Mr. Bowen states that his main complaint is of abdominal distention with pain in the epigastric region. He also complains of back and leg pain which is worse with standing. He denies nausea and is tolerating oral intake well. He denies chest pain or SOB. Family History: Unchanged from Admission Social History: Unchanged from Admission Past Medical History: Unchanged from Admission - reports epidural steroid injection in LS spine 1 yr ago [facility] Objective Active Medications: Amlodipine Besylate (Norvasc Tab*) 5 mg PO DAILY [facility] Dextrose (D50w Syringe 50 Ml*) 12.5 gm IV PUSH .FOR FS < 60 - SS PRN Ceftriaxone Sodium 1,000 mg/ (Sodium Chloride) 50 mls @ 200 mls/hr IVPB Q24H [facility] Insulin Glargine (Lantus(*)) 25 units SUBCUT Q12H [facility] Insulin Human Lispro (Humalog*) 0 units SUBCUT ACHS [facility] Ketorolac Tromethamine (Toradol Inj*) 15 mg IV PUSH Q6H PRN Lactulose (Lactulose*) 30 ml PO TID [facility] Lisinopril (Prinivil Tab*) 40 mg PO DAILY [facility] Lorazepam (Ativan Inj*) 1 mg IV PUSH Q6H PRN Morphine Sulfate (Morphine Inj (Syringe)*) 2 mg IV Q6H PRN Nicotine (Nicotine Inhaler*) 10 mg INH Q2H PRN Ondansetron HCl (Zofran Inj*) 4 mg IV Q6H PRN Pantoprazole Sodium (Protonix Iv*) 40 mg IV DAILY [facility] Pregabalin (Lyrica Cap(*)) 75 mg PO BID [facility] Psyllium Hydrophilic Mucilloid (Metamucil Bryan*) 1 pkt PO DAILY [facility] Senna (Senokot Tab*) 2 tab PO BEDTIME PRN Vital Signs 06/01/16 06/01/16 06/01/16 15:22 20:00 20:17 Temperature 98.0 F Pulse Rate 99 Respiratory 18 18 18 Rate Blood Pressure 155/80 (mmHg) O2 Sat by Pulse 95 Oximetry 06/01/16 06/01/16 06/02/16 22:17 23:16 07:36 Temperature 97.7 F 97.9 F Pulse Rate 75 94 Respiratory 18 21 18 Rate Blood Pressure 130/55 152/86 (mmHg) O2 Sat by Pulse 97 95 Oximetry 06/02/16 06/02/16 06/02/16 08:00 08:31 10:31 Temperature Pulse Rate Respiratory 18 18 18 Rate Blood Pressure (mmHg) O2 Sat by Pulse Oximetry Oxygen Devices in Use Now: None Appearance: Male sitting up on edge of bed in NAD Respiratory: Symmetrical Chest Expansion and Respiratory Effort, Clear to Auscultation Cardiovascular: NL Sounds; No Murmurs; No JVD, No Edema Abdominal: - - Firm and distended, BS hypoactive Extremities: No Edema Skin: No Rash or Ulcers Neurological: Alert and Oriented x 3, NL Muscle Strength and Tone Nutrition: Taking PO's Result Diagrams: 06/01/16 05:40 06/02/16 07:02 Additional Lab and Data: Lab Results Laboratory Tests 06/01/16 06/01/16 06/01/16 05:40 05:40 07:19 WBC 10.3 Hgb 12.3 L Hct 38 L Plt Count 352 Glucose 189 H POC Glucose (mg/dL) 215 H Microbiology and Other Data: Microbiology Fluid culture from aspirates pending Assess/Plan/Problems-Billing Assessment: Mr. Bowen is a 60 yo M h/o HIV (unknown VL or CD4), DM2, GERD, chronic back pain p/w abdominal pain and constipation vs ileus, found to have lumbar osteo- discitis with associated phlegmon and spinal stenosis symptoms - Patient Problems (1) Osteomyelitis Comment: Of lumbar spine with associated phlegmon (?abscess). Neurosurgery and ID following. IR aspiration (05/31) negative, but was dry tap. Continue ceftriaxone, will need 8 weeks abx after bacteria identified. Added toradol for pain, and Lyrica for neuropathic pain. May need elective LS surgery in future after infection cleared. (2) Obstipation Comment: Unclear etiology. In review with radiology they do think the spinal stenosis could cause these symptoms however neurosurgery does not agree. He reports no BM for 8 days. Xray shows moderate retained stool. Ambulate as tolerated though limited by pain. Continue lactulose PO, add dulcolax and fleet enema. Opiates low dose. (3) HIV (human immunodeficiency virus infection) Comment: Absolute CD4 count 225, VL pending. Hold ART in setting of obstipation. Dr. Schmitt not available this week. (4) Diabetes Comment: BGs remain elevated. Increase lantus from 25 to 30 BID. Continue SSI with meals. (5) Sepsis Comment: Severe, present on admission with epidural collection most likely source. (6) Acute kidney failure Comment: Resolved. (7) Elevated troponin Comment: No chest pain, peaked at 0.13 during episode of severe sepsis. Suspect demand ischemia. Echo shows diastolic dysfunction only. (8) Hypertension Comment: SBP 130-150s. Continue lisinopril. (9) DVT prophylaxis (10) Full code status Status and Disposition: [facility] until plan is reached for treating discitis, epidural infection.
[2016-06-02] MEDS ORDERED: Sodium Phosphate ADULT ENEMA* 118 ml bottle PR PRN (13:05)
--- NOTE | 2016-06-02 13:36 | RAD ---
INDICATION: Abdominal distention. Pain. COMPARISON: May 27, 2016 TECHNIQUE: Erect and supine views of the abdomen are submitted. FINDINGS: Bones: There are no acute bony findings. Soft tissues: The soft tissues appear normal. The psoas margins are sharp. Bowel gas pattern: There are no obstructive findings. There is moderate stool throughout the colon Calcifications: There are no abnormal calcifications. Other: None IMPRESSION: MODERATE RETAINED STOOL.
[2016-06-02] MEDS ORDERED: Benzocaine/Menthol LOZ* 1 LOZENGE PO PRN (14:28)
[2016-06-02] MEDS: Bisacodyl SUPP* 10 MG SUPP PR SCH (15:46)
[2016-06-02] MEDS: cefTRIAXone VIAL(*) 1,000 MG in NS 0.9% 50 ML* 50 ML IVPB SCH (17:55)
[2016-06-03] MEDS: Ketorolac INJ* 15 MG/ML 1 ML VIAL IV PUSH PRN ×2 (04:42→13:10)
[2016-06-03] MEDS: Senna TAB PO PRN (04:42)
[2016-06-03] MEDS ORDERED: Acetaminophen TAB* 325 MG PO ONE (07:47)
[2016-06-03 08:06] VITALS: BP 159/88
[2016-06-03] MEDS: Insulin LISPRO* 1 UNITS UNIT SUBCUT SCH ×3 (08:52→17:16)
[2016-06-03] MEDS: Pregabalin CAP(*) 25 MG PO SCH (08:55)
[2016-06-03] MEDS: Lisinopril TAB* 10 MG PO SCH (08:55)
[2016-06-03] MEDS: Bisacodyl SUPP* 10 MG SUPP PR SCH (08:57)
[2016-06-03] MEDS: amLODIPine TAB* 5 MG PO SCH (08:57)
[2016-06-03] MEDS: Pantoprazole IV* 40 MG IV SCH (08:57)
[2016-06-03] MEDS: Psyllium PAK PO SCH (08:58)
[2016-06-03] MEDS ORDERED: Lisinopril TAB* 10 MG ONE (09:01)
[2016-06-03] MEDS: Insulin GLARGINE(*) 1 UNITS UNIT SUBCUT SCH (12:48)
--- NOTE | 2016-06-03 13:13 | DCNOTE ---
Subjective Date of Service: 06/03/16 Interval History: pt reports he has abdominal discomfort but states this has been going on for "a long time". Per nursing staff he had two large BMs today and eating all of his meals. The pt has been lying about having a BM denying it to staff but aide clearly saw the stool. When I discussed with patient he was honest and said he had BMs today. Denies emesis or nausea. Patient reports LE weakness and back pain but states he has had the "for years" . He ambulated around the unit multiple times today independently with a steady gait. He reports low sacral back pain improved from admission also stating this is chronic at baseline. No fever or chills. no sob or CP. reports abdominal bloating. No difficulty urinating. Good appetite. Please see nursing noted for patient inappropriate behavior with nursing staff. Family History: Unchanged from Admission Social History: Unchanged from Admission Past Medical History: Unchanged from Admission - reports epidural steroid injection in LS spine 1 yr ago [facility] Objective Active Medications: Amlodipine Besylate (Norvasc Tab*) 5 mg PO DAILY [facility] Last Admin: 06/03/16 08:57 Dose: 5 mg Bisacodyl (Dulcolax Supp*) 10 mg HI DAILY [facility] Last Admin: 06/03/16 08:57 Dose: 10 mg Dextrose (D50w Syringe 50 Ml*) 12.5 gm IV PUSH .FOR FS < 60 - SS PRN PRN Reason: FS < 60 Ceftriaxone Sodium 1,000 mg/ (Sodium Chloride) 50 mls @ 200 mls/hr IVPB Q24H [facility] Last Admin: 06/02/16 17:55 Dose: 200 mls/hr Insulin Glargine (Lantus(*)) 30 units SUBCUT Q12H [facility] Last Admin: 06/03/16 12:48 Dose: 30 units Insulin Human Lispro (Humalog*) 0 units SUBCUT ACHS ELKE PRN Reason: Protocol Last Admin: 06/03/16 12:47 Dose: 12 units Ketorolac Tromethamine (Toradol Inj*) 15 mg IV PUSH Q6H PRN PRN Reason: PAIN Last Admin: 06/03/16 13:10 Dose: 15 mg Lactulose (Lactulose*) 30 ml PO TID [facility] Last Admin: 06/03/16 12:49 Dose: 30 ml Lisinopril (Prinivil Tab*) 40 mg PO DAILY [facility] Last Admin: 06/03/16 08:55 Dose: 40 mg Lorazepam (Ativan Inj*) 1 mg IV PUSH Q6H PRN PRN Reason: ANXIETY Last Admin: 05/29/16 19:54 Dose: 1 mg Morphine Sulfate (Morphine Inj (Syringe)*) 2 mg IV Q6H PRN PRN Reason: PAIN Last Admin: 06/02/16 21:37 Dose: 2 mg Nicotine (Nicotine Inhaler*) 10 mg INH Q2H PRN PRN Reason: CRAVING Last Admin: 05/27/16 19:59 Dose: 10 mg Ondansetron HCl (Zofran Inj*) 4 mg IV Q6H PRN PRN Reason: NAUSEA Last Admin: 05/29/16 18:26 Dose: 4 mg Pantoprazole Sodium (Protonix Iv*) 40 mg IV DAILY [facility] Last Admin: 06/03/16 08:57 Dose: 40 mg Pregabalin (Lyrica Cap(*)) 75 mg PO BID [facility] Last Admin: 06/03/16 08:55 Dose: 75 mg Psyllium Hydrophilic Mucilloid (Metamucil Bryan*) 1 pkt PO DAILY [facility] Last Admin: 06/03/16 08:58 Dose: 1 pkt Senna (Senokot Tab*) 2 tab PO BEDTIME PRN PRN Reason: CONSTIPATION Last Admin: 06/03/16 04:42 Dose: 2 tab Sodium Biphosphate/Sodium Phosphate (Fleet Enema*) 1 bottle HI DAILY PRN PRN Reason: CONSTIPATION Last Admin: 06/03/16 13:10 Dose: 1 bottle Throat Lozenges (Chloraseptic Breann*) 1 breann PO Q6H PRN PRN Reason: SORE THROAT Last Admin: 06/02/16 15:43 Dose: 1 breann Vital Signs 06/02/16 06/02/16 06/02/16 15:51 20:00 21:33 Temperature 98.5 F Pulse Rate 98 Respiratory 16 16 16 Rate Blood Pressure 146/82 (mmHg) O2 Sat by Pulse 94 Oximetry 06/02/16 06/02/16 06/02/16 21:37 23:33 23:47 Temperature 98.2 F Pulse Rate 92 Respiratory 16 16 16 Rate Blood Pressure 132/60 (mmHg) O2 Sat by Pulse 96 Oximetry 06/03/16 06/03/16 06/03/16 07:47 08:55 10:55 Temperature 98.2 F Pulse Rate 87 Respiratory 18 18 19 Rate Blood Pressure 159/88 (mmHg) O2 Sat by Pulse 96 Oximetry Oxygen Devices in Use Now: None Appearance: obese male sitting up on the side of the bed in NAD. A+O x3 Eyes: No Scleral Icterus, PERRLA Ears/Nose/Mouth/Throat: NL Teeth, Lips, Gums, Mucous Membranes Moist Neck: NL Appearance and Movements; NL JVP Respiratory: Symmetrical Chest Expansion and Respiratory Effort, Clear to Auscultation Cardiovascular: NL Sounds; No Murmurs; No JVD, RRR, No Edema Abdominal: - - obese, distented soft no guarding, nontender, NL BS Lymphatic: No Cervical Adenopathy Extremities: No Edema, No Clubbing, Cyanosis Skin: No Rash or Ulcers, No Nodules or Sclerosis Neurological: Alert and Oriented x 3, NL Sensation, NL Gait, NL Muscle Strength and Tone, - - no tenderness deja cervial, thoracic spinal - some tenderness to lumbar and sacral with deep palpation. Neuro exam intact. Lines/Tubes/Other Access: Clean, Dry and Intact PICC Line - placed 06/03/16 Nutrition: Taking PO's Result Diagrams: 06/01/16 05:40 06/02/16 07:02 Additional Lab and Data: Lab Results Laboratory Tests 06/01/16 06/01/16 06/01/16 05:40 05:40 07:19 WBC 10.3 Hgb 12.3 L Hct 38 L Plt Count 352 Glucose 189 H POC Glucose (mg/dL) 215 H Microbiology and Other Data: Microbiology Fluid culture from aspirates pending Assess/Plan/Problems-Billing Assessment: Mr. Bowen is a 60 yo M h/o HIV (unknown VL or CD4), DM2, GERD, chronic back pain p/w abdominal pain and constipation vs ileus, found to have lumbar osteo- discitis with associated phlegmon and spinal stenosis symptoms - Patient Problems (1) Sepsis Comment: Resolved. present on admission with epidural collection most likely source. (2) Osteomyelitis Comment: Of lumbar spine with associated phlegmon (?abscess). Neurosurgery and ID following. IR aspiration (05/31) negative, but was dry tap. Continue ceftriaxone, will need 8 weeks abx after bacteria identified. Added toradol for pain, and Lyrica for neuropathic pain. May need elective LS surgery in future after infection cleared. weekly labs CMP, CBC, CRP results sent to Dr. Schmitt (3) Acute kidney failure Comment: Resolved. (4) Diabetes Comment: BGs remain elevated. Increase lantus back to home dose (5) Elevated troponin Comment: No chest pain, peaked at 0.13 during episode of severe sepsis. Suspect demand ischemia. Echo shows diastolic dysfunction only. (6) HIV (human immunodeficiency virus infection) Comment: Absolute CD4 count 225, VL pending. Restart ART (7) Hypertension Comment: Continue lisinopril. (8) Obstipation Comment: IBS at baseline. Xray shows moderate retained stool. He has had multiple BMs today. Add simethicone. add senna, fleet enema. (9) DVT prophylaxis (10) Full code status Status and Disposition: Inpatient. Plan for IV abx at [facility], PICC line was placed, patient will live in [facility] for 8 weeks while being treated.
[2016-06-03] MEDS ORDERED: Simethicone TAB* 80 MG TAB.CHEW PO PRN (15:54)
[2016-06-03] MEDS: cefTRIAXone VIAL(*) 1,000 MG in NS 0.9% 50 ML* 50 ML IVPB SCH (16:31)
--- NOTE | 2016-06-05 06:22 | DS ---
DISCHARGE SUMMARY: DATE OF ADMISSION: 05/27/16 DATE OF DISCHARGE: 06/03/16 ATTENDING PHYSICIAN: Dr. Lazaro *(report dictated by Scott Bedoya, KALYANI). PRIMARY CARE PROVIDER: [facility]. CONSULTING PHYSICIAN: Dr. Schmitt. PRIMARY DIAGNOSES: 1. Vertebral osteodiskitis with L3-S1 and associated epidural phlegmon and L5- S1 loculated epidural fluid collection. 2. Human immunodeficiency virus. 3. Obstipation, most likely secondary to irritable bowel syndrome. 4. Urinary retention. 5. Acute renal failure. 6. Sepsis secondary to vertebral osteodiskitis. SECONDARY DIAGNOSES: 1. Insulin dependent type 2 diabetes. 2. Gastroesophageal reflux disease. 3. Tobacco abuse. 4. History of degenerative disk disease with chronic lower back pain. The patient reports he is cane and wheel dependent, please note though that the patient was ambulating around the unit throughout hospitalization. 5. Hepatitis C. HISTORY OF PRESENT ILLNESS AND HOSPITAL COURSE: Please see history and physical by Dr. Daniela Kemp for full admission details but in summary, this is a 60-year-old male with past medical history of HIV positive, insulin dependent type 2 diabetes, hepatitis C, who presented to [facility] on 05/27/16 with report of generalized weakness, feeling faint, and abdominal pain. Per the medical office at [facility], the patient was sent for "nearly passing out." On admission, the patient complained of problems with the urination in which he was bladder scanned and had noted 300 mL postvoid. The patient complained of diffuse pain reporting increasing abdominal distention with diffuse abdominal pain, but no problems with p.o. intake. Reported constipation for approximately "4 days" and no flatulence for several days. The patient also had multiple other complaints such as a nonproductive cough, but denied shortness of breath. He reported chronic lower bilateral extremity edema. The patient was admitted to the hospitalist service and thought additionally the patient had a small bowel obstruction and he was noted to have an elevated lactic acid of 4.1 and troponin of 0.13. The patient was admitted initially to the intensive care unit. The patient's lactic acid was thought to be most likely secondary to combination of dehydration and metformin use. The patient was started on IV fluids and was rechecked several hours in which it was normalized at 1.4. As well, the patient's troponin was rechecked 3 hours later and was negative at 0.01. The patient also noted to have acute renal failure with the creatinine of 3.72. The patient's renal failure was most likely secondary to dehydration as it normalized up within 2 days after IV fluids were given. The patient was also noted to have leukocytosis with a white blood cell count of 21,000. He underwent an abdomen and pelvis CT on admission which showed: 1. Hepatomegaly with fatty infiltration of the liver. Diverticulitis. Fat containing umbilical and left inguinal hernias. The patient's abdominal distention and constipation are thought to be secondary to obstipation. It sounds that the patient has a history of irritable bowel syndrome. Initially on admission, the imaging was reviewed with the radiologist, which showed no fecal impaction thought possibly suggestive of partial gastric outlet obstruction, but the patient had no nausea or vomiting. The patient had a complaint of back pain with a report of fecal and urinary incontinence and an MRI of the spine without contrast in the setting of elevated white blood cell count was performed showing "there are multiple degenerative changes in the lower lumbar spine as described above with most severe findings at L5-S1 where there is a high grade central canal stenosis and advanced left greater than right neuroforaminal stenosis." 2. Depicted best on the sagittal view images, there is fluid signal at L3-L4 and L5-S1 where the vertebral disks are otherwise desiccated indicating local effusion. This could be seen in the presence of osteomyelitis, although the normal bony signal of the adjacent lumbar end plates does not support this. Please correlate the clinical signs or symptoms of intervertebral disk height. 3. Fatty degeneration of inferior portion of the left erector spinae muscle. Due to this abnormal effusion noted on the MRI, the patient then underwent an MRI of the spine with contrast which showed: "#1 in the correct clinical setting of the constellation of findings is consistent with multilevel lumbosacral spine osteomyelitis and epidural phlegmon with resulting severe acquired central canal stenosis, most marked at the L5-S1 level. At the left posterior lateral L5-S1 and S1 level, there was loculated epidural fluid collection measuring up to 0.9 cm, 80 x 1.8 cm transverse by 2.1 cm cephalocaudal consistent with epidural abscess. #2, negative for enhancement as a distribution of the well-circumscribed T2 hyperintensity at the L5-S1 disk on the exam of one day prior. This may result in hematoma or seroma related to the severe disk degeneration or previous partial diskectomy; however, abscess collection of the disk space is not excluded given the full spectrum of surrounding inflammatory findings." The patient was seen in consultation by infectious disease specialist, Dr. Schmitt. Dr. Schmitt reports that his impression is that the MRI shows multilevel vertebral osteodiskitis with associated epidural phlegmon and loculated epidural fluid collection. Recommendation is for 8 weeks of ceftriaxone. The patient also was seen from Neurosurgery. Per recommendation, the patient underwent an interventional radiologist tap for posterior fluid collection and culture. The neurosurgical team, Dr. Navarro recommended no surgical intervention needed at this time. The IR epidural aspiration showed dried tap fluid after washout was sent for culture, which the Gram stain and body fluid culture showed no growth day 4. The acid fast bacilli smear from the tissue abscess was negative. The patient also had negative blood cultures. The patient has done well throughout his hospitalization. His urinary incontinence and retention is resolved. His lower back pain has greatly improved. His biggest complaint was he had abdominal distention with constipation. He was started on a bowel regimen. He did undergo an abdomen x- ray, which showed a moderate amount of retained stool. The patient has had multiple large bowel movements and in talking to the patient it appears like he has some irritable bowel syndrome with chronic constipation. I also discussed with the patient that the patient increase his water intake as well as try to reduce the amount of processed foods he eats. I understand that this may be difficult in the present setting; however, it may help his constipation as well as it agrees with his fiber intake. The patient has had multiple complaints throughout the hospitalization. For example, the patient has complained of not being able to walk and having leg pain; however, he ambulates around the unit multiple times with a steady gait independently. As well, he has reported to the nurse he is in "10/10 pain." However, on assessment does not appear to be in pain and is found to be laughing and joking with the guards. Per patient, he did ask for IV pain medications and initially received these on admission due to the significance of pain related to an epidural abscess and osteomyelitis. However, when these were discontinued, the patient was very upset, found to be yelling at the nurse multiple times. In my evaluation of the patient yesterday, the patient was alert and oriented x3, appropriate on evaluation. The patient denied any recent fevers or chills. No further urinary retention or incontinence. The patient reports good appetite. Biggest complaint is that his abdomen is distended and has had constipation. Again, the patient had 2 large recent bowel movements and was encouraged to continue to increase his water intake and continue on a bowel regimen. In regards to the patient's HIV, his absolute CD4 count was 225 and his viral load is still pending at the time of dictation. He should continue on his HAART medication therapy. In regards to his spinal osteomyelitis and possible abscess, the patient will require 8 weeks of ceftriaxone with weekly labs sent to Dr. Schmitt. He may need a lumbar spine surgery in the future after the infection is cleared. He should follow up with the neurosurgeon in 2 to 3 months. Please note that the patient did present with sepsis on admission, but this resolved quickly with IV fluids and IV antibiotics. Please note that the patient had a grossly abnormal urinalysis on admission; however, his final urine culture had no growth. DISCHARGE MEDICATIONS: 1. Insulin regular 0 to 100 units subcu t.i.d. 2. Lantus 48 units subcu b.i.d. 3. MiraLax 17 g p.o. daily. 4. Meloxicam 7.5 mg p.o. b.i.d. 5. Vitamin B6 at 100 mg p.o. b.i.d. 6. Metamucil 1 pack p.o. daily. 7. Zyrtec 10 mg p.o. daily. 8. Prilosec 10 mg p.o. daily. 9. Odefsey 200-25-25 mg one tab p.o. daily. 10. Amitriptyline 75 mg p.o. daily. 11. Metformin 1000 mg p.o. daily. 12. Lisinopril 40 mg p.o. daily. 13. Lipitor 20 mg p.o. daily. 14. Aspirin EC low dose 81 mg p.o. daily. 15. Fleet enema 1 mL per rectum daily p.r.n. constipation. 16. Probiotic 1 tab p.o. daily. 17. Senna 2 tabs p.o. at bedtime p.r.n. 18. Simethicone chew 80 mg p.o. q.6 hours p.r.n. bloating, distention. 19. Ceftriaxone 1 g IV daily for 8 weeks. DISCHARGE PLAN: 1. The patient is stable for discharge back to [facility]. 2. The patient has had a right upper arm PICC placed, managed per PICC protocol with normal saline and heparin flushes. 3. Weekly CMP, CRP, and CBC with auto differential to Dr. Schmitt. 3. Follow up with Neurosurgery in 2 to 3 months. 4. Continue strict bowel regimen. The patient on discharge was ambulating around the unit in no acute distress. Alert and oriented x3 and is stable for discharge back to [facility]. TIME SPENT: Approximately 75 minutes was spent on this discharge. SCOTT BEDOYA NP CC: [facility]; Dr. Schmitt * [id number]/CPS #: [id number]
== END 2016-06-03 18:55 | DRG 720 ==
LOC: ED 13:31 → ICU 15:14 → EEVIPCON 15:14 → MED 05-28 00:17
PROVIDERS: ADMIT Internal Medicine; ATTEND Hospitalist
PROC: 009U3ZZ Drainage of Spinal Canal, Percutaneous Approach (ICD-10-PCS; principal; 2016-05-31)
PROC: B01BZZZ Fluoroscopy of Spinal Cord (ICD-10-PCS; 2016-05-31)
PROC: 02HV33Z Insertion of Infusion Device into Superior Vena Cava, Percutaneous Approach (ICD-10-PCS; 2016-06-03)
DX: A41.9 Sepsis, unspecified organism (principal); G06.2 Extradural and subdural abscess, unspecified; E87.2 Acidosis; N17.9 Acute kidney failure, unspecified; E11.65 Type 2 diabetes mellitus with hyperglycemia; E11.649 Type 2 diabetes mellitus with hypoglycemia without coma; K56.7 Ileus, unspecified; M46.26 Osteomyelitis of vertebra, lumbar region; I10 Essential (primary) hypertension; E78.5 Hyperlipidemia, unspecified; K21.9 Gastro-esophageal reflux disease without esophagitis; Z21 Asymptomatic human immunodeficiency virus [HIV] infection status; B19.20 Unspecified viral hepatitis C without hepatic coma; R60.0 Localized edema; G89.29 Other chronic pain; Z99.3 Dependence on wheelchair; Z83.3 Family history of diabetes mellitus; Z84.89 Family history of other specified conditions; F17.210 Nicotine dependence, cigarettes, uncomplicated; E66.9 Obesity, unspecified; E86.0 Dehydration; K59.00 Constipation, unspecified; R79.89 Other specified abnormal findings of blood chemistry; R65.20 Severe sepsis without septic shock; R32 Unspecified urinary incontinence; Z86.11 Personal history of tuberculosis; R33.9 Retention of urine, unspecified; R53.1 Weakness; K58.9 Irritable bowel syndrome, unspecified; M46.46 Discitis, unspecified, lumbar region; M48.06 Spinal stenosis, lumbar region; R15.9 Full incontinence of feces; Z68.34 Body mass index [BMI] 34.0-34.9, adult; K57.90 Diverticulosis of intestine, part unspecified, without perforation or abscess without bleeding; M51.36 Other intervertebral disc degeneration, lumbar region
CPT/HCPCS: 36415; 62270; 71020; 72148; 72149; 74020; 74176; 77002; 80048; 80053; 80076; 81003; 81015; 82150; 82550; 83036; 83605; 83690; 83735; 83880; 84484; 85025; 85610; 85730; 86140; 86359; 86360; 86850; 86900; 86901; 87015; 87040; 87070; 87073; 87086; 87116; 87205; 87206; 87536; 87641; 93005; 93306; 99406; A9270-GY; A9579; C1751; J0696; J1644; J1885; J2060; J2270; J2405; J3010; J3490